=== PATIENT | female | born 1965 | race Caucasian/White ===

== ENCOUNTER → 2016-04-08 | Outpatient (CLI) | payer MEDICARE, OTHER, MEDICAID ==
[~2016-04-08] MED LIST: /PANT40TA; /PREG100CA PO; /PREG50CA PO; ABIL10TA OR; ADV100INH INH; ATIV0.5T; BACL10TA2; BACL10TA2 PO; BRIN20TA PO; BRIN5TAB PO; CITRTAB10 PO; EFFE150C OR; ESZO1TAB3 PO; FAMO20TA2 OR; FAMO40TA3 PO; FLUO10CA8 PO; IBUP600T; LAMICTAL; LEVO50TA2 OR; LIDO1DIS2 TD; LIDO5DIS36 TD; LITH300T2 OR; LORA1TAB12 PO; LORA2TAB PO; LOVE1INJ SUBQ; LUNE3TAB PO; LYRI150C PO; LYRI200C PO; MELA1CAP PO; MULTTAB4 PO; MURO5OIN OU; Morphine IR; NEXI20CA PO; NUCY50TA17 PO; OMEP40CA2 PO; OSCAL D PO; OXYC10TA12 PO; OXYC10TA56; OXYCODONE; PERCOCET PO; POTA20TA6 PO; PRAZ2CAP PO; PRISTIQ; PROA1AER IN; REME15TA PO; REST0.05 OU; RISP1SOL15 PO; RISP4TAB33 PO; SELE6PA TD; SERO1TAB2 PO; SOMA250T PO; SOMA350T PO; STOO100C PO; TIZA2CAP3 PO; TOPA200T6 PO; TOPI200T; TOPI200T OR; TRAM50TA2 OR; TRAZ300T2; VALI10TA PO; VICO5TAB PO; VILAZODONE PO; VITA200015 PO; VITA500T53 PO; VITAMIN B12 PO; VOLT1GEL2 TD; VOLT1GEL24 TD; ZIPR80CAP; ZOLO100T PO; [UNRECOGNIZED DRUG - OTHER] PO; [UNRECOGNIZED DRUG - OTHER] TD; estroven
== END ==
LOC: M PAIN 10:20
PROVIDERS: ATTEND Nurse Practitioner Family
DX: Z09 Encounter for follow-up examination after completed treatment for conditions other than malignant neoplasm (principal); G89.29 Other chronic pain; M96.1 Postlaminectomy syndrome, not elsewhere classified; F31.9 Bipolar disorder, unspecified; Z88.0 Allergy status to penicillin; Z88.8 Allergy status to other drugs, medicaments and biological substances; Z91.018 Allergy to other foods; Z79.891 Long term (current) use of opiate analgesic; Z79.899 Other long term (current) drug therapy; Z91.041 Radiographic dye allergy status; Z86.718 Personal history of other venous thrombosis and embolism

== ENCOUNTER → 2016-05-10 | Outpatient (CLI) | payer MEDICARE, MEDICAID, OTHER ==
--- NOTE | 2016-05-10 23:44 | ECWPNPC ---
PATIENT NAME: CECILIO CONNER : 1965 GENDER: FEMALE VISIT DATE: 05/10/2016 DISCHARGE DATE: 05/10/16 1027 VISIT LOCKED DATE TIME: PHYSICIAN: SRIDHAR PRADO RESOURCE: SRIDHAR PRADO REASON FOR APPOINTMENT 1. FOLLOWUP HISTORY OF PRESENT ILLNESS HISTORY OF PRESENT ILLNESS: PAIN THE PATIENT DESCRIBES THE PAIN... THE PATIENT DESCRIBES THE PAIN... THE PATIENT DESCRIBES THE PAIN... THE PATIENT DESCRIBES THE PAIN... THE PATIENT DESCRIBES THE PAIN... 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 FINDS CURRENT MEDICINE EFFECTIVE AT REDUCING PAIN AND KEEPING HER COMFORTABLE.DENIES ADVERSE EFFECTS W MEDICATION. CURRENT MEDICATION :LYRICA 200MG BID,MSIR 15MG 1 PRN FOR SEVERE PAIN W MAX 3 TAB,NUCYNTA 100MG BID.RATING PAIN VAS 7/10.RECENTLY HAS BEEN BOTHERED BY RIGHT NECK PAIN AND LEFT ARM PAIN.HAS HAD DCS REMOVED .HAD COMPLICATIONS OF INCREASED PAIN POST PROCEDURE AND ENDED UP IN HOSPITAL IN [place] X6DAYS.HAS BEEN OFF NUCYNTA ER AND MSIR 15MG SINCE February.REPORTING DISABLING PAIN SINCE LAST WEEK.PAIN IS LOCATED IN LOW BACK.PAIN IS AGGREVATED BY USE OF ARMS.REPORTING POOR SLEEP X5 DAYS AND BIT OFF NAILS.HAS HAD HIGH ANXIETY LATELY.USING MSIR 15MG PRN FOR SEVERE PAIN W MINIMAL IMPROVEMNT.FINDS CYCLOBENZAPRINE 10MG PRN W GOOD EFFECT. FALL RISK SCREENING: SCREENING :NO FALLS IN THE PAST YEAR CURRENT MEDICATIONS TAKING TOPAMAX 200 MG TABLET 1 TABLET ORALLY TWICE A DAY TAKING LEVOTHYROXINE SODIUM 50 MCG TABLET 1 TABLET ON AN EMPTY STOMACH IN THE MORNING P.O. ONCE A DAY TAKING LORAZAPAM 1 1MG TABLET 1 TAB(S) P.O. THREE TIMES A DAY NEEDED TAKING OMEPRAZOLE 40 MG CAPSULE DELAYED RELEASE 1 CAPSULE P.O. TWICE A DAY TAKING VITAMIN D-3 2000UNITS TABLET 2 TABLETS P.O. TWICE A DAY TAKING MULTIVITAMINS OTC TABLET 2 TABLETS P.O. ONCE A DAY TAKING CITRACAL + D 250-200 MG-UNIT TABLET 1 TABLET P.O. TWICE A DAY TAKING ADVAIR DISKUS 100-50 MCG/DOSE AEROSOL POWDER BREATH ACTIVATED 1 PUFF INHALATION TWICE A DAY TAKING PROAIR HFA AEROSOL SOLUTION 2 PUFFS NEEDED INHALATION TWICE A DAY TAKING RESTASIS 1 DROP OPHTHALMIC TWICE A DAY BOTH EYES TAKING SEROQUEL 300 MG TABLET 1 TABLET ORALLY DAILY TAKING VORTIOXETINE HBR 20 MG TABLET 1 TABLET ORALLY ONCE A DAY (TRINTELLIX) TAKING POTASSIUM 1 TAB ORAL ONCE DAILY TAKING FENOFIBRATE 134 MG CAPSULE 1 CAPSULE WITH A MEAL ORALLY ONCE A DAY TAKING ALBUTEROL SULFATE 1.25 MG/3ML NEBULIZATION SOLUTION 3 ML NEEDED INHALATION EVERY 8 HRS TAKING REMERON 15 MG TABLET 1 TABLET BEFORE BEDTIME IN THE EVENING ORALLY ONCE A DAY TAKING VENLAFAXINE HCL 37.5 MG TABLET 1 TABLET WITH FOOD ORALLY QD TAKING LYRICA 200 MG CAPSULE 1 CAPSULE ORALLY BID MDD2 TAKING MORPHINE SULFATE 15 MG TABLET 1 TABLET NEEDED ORALLY Q8H PRN MDD3 TAKING CYCLOBENZAPRINE HCL 10 MG TABLET 1 TABLET ORALLY THREE TIMES A DAY NEEDED TAKING LIDOCAINE HCL 2 % GEL DIRECTED EXTERNALLY BID TO INCISIONAL AREA NOT-TAKING ANTI-FUNGAL CREAM ONE APPLICATION EXTERNALLY THREE TIMES DAILY NOT-TAKING LOTEMAX 0.5 % SUSPENSION 1 DROP INTO AFFECTED EYE OPHTHALMIC FOUR TIMES A DAY NOT-TAKING REFRESH DRY EYE THERAPY 1 DROP BOTH EYES FOUR TIMES DAILY NOT-TAKING FISH OIL 1000 MG CAPSULE 1 CAPSULE ORALLY ONCE A DAY NOT-TAKING LIDODERM 5 % PATCH 1 PATCH TO INTACT SKIN REMOVE AFTER 12 HOURS EXTERNALLY ONCE A DAY NOT-TAKING BUDESONIDE (INHALATION) 1 INHALATION NEBULIZER TWICE DAILY MEDICATION LIST REVIEWED AND RECONCILED WITH THE PATIENT PAST MEDICAL HISTORY BIPOLAR DISORDER HX OF DVT, 1988 1998, BACK INJURY AFTER 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 NEW PATIENT PAIN DIARY TODAY'S VISITNOTES FROM 0-10, WHAT LEVEL IS YOUR PAIN TODAY?0 PAIN CLINIC PFS, CLERGY, PUBLIC HEALTH REFERRALS PFS REFERRAL NEEDED?NO CLERGY REFERRAL NEEDED?NO PUBLIC HEALTH REFERRAL NEEDED?NO WAS THE PROVIDER NOTIFIED OF ANY PERTINENT INFO?NO PFS REFERRAL NEEDED?NO CLERGY REFERRAL NEEDED?NO PUBLIC HEALTH REFERRAL NEEDED?NO WAS THE PROVIDER NOTIFIED OF ANY PERTINENT INFO?NO REVIEW OF SYSTEMS CONSTITUTIONAL: ANY CHANGE IN YOUR MEDICAL CONDITION? NO . CHILLS NO . FEVER NO . INFECTION: DO YOU HAVE NEW INFECTIONS? NO . DO YOU HAVE HISTORY OF MRSA? NO . MUSCULOSKELETAL: ANY NEW PATTERNS OF PAIN OR NUMBNESS? NO . GASTROENTEROLOGY: ANY NEW CHANGE IN BOWEL CONTROL? NO . GENITOURINARY: ANY NEW CHANGE IN BLADDER CONTROL? NO . IS THERE A CHANCE YOU COULD BE ? NO . HEMATOLOGY/LYMPH: DO YOU TAKE ANY BLOOD THINNERS? (FOR EXAMPLE- COUMADIN, PLAVIX, AGGRENOX, PLATEL, PRADAXA, OR XARELTO) NO . WHEN WAS YOUR LAST DOSE? DATE: TIME: . NEUROLOGY: HAVE YOU FALLEN IN THE PAST 6 MONTHS? NO . ANY NEW EXTREMITY NUMBNESS OR WEAKNESS? NO . CARDIOLOGY: DO YOU HAVE A PACEMAKER OR DEFIBRILLATOR? NO . RESPIRATORY: HAVE YOU BEEN SICK IN THE PAST WEEK? NO . FEVER NO . FLU LIKE SYMPTOMS? NO . COUGH NO . INTEGUMENTARY: DO YOU HAVE ANY RASHES OR OPEN SORES? NO . ALLERGIC/IMMUNO: ARE YOU ALLERGIC TO SHELLFISH OR IV DYE? NO . ANY NEW ALLERGIES? NO . PSYCHIATRIC: DO YOU HAVE THOUGHTS OF HURTING YOURSELF OR SOMEONE ELSE? NO . ARE YOU ABUSED, NEGLECTED, OR IN AN UNSAFE ENVIRONMENT? NO . ENDOCRINOLOGY: ARE YOU DIABETIC? NO . OTHER: DO YOU NEED ANY PRESCRIPTIONS? YES . IF YES, PLEASE LIST: MORPHINE AND CYCLOBENZAPRINE . ANY NEW PROBLEMS WITH YOUR MEDICATIONS? NO . WHEN DID YOU LAST EAT? ____ . WHEN DID YOU LAST DRINK? ____ . WHAT DID YOU LAST DRINK? ____ . NAME OF PERSON DRIVING YOU HOME? ____ . DO YOU HAVE ANY OTHER QUESTIONS OR CONCERNS NO . REVIEWED BY: PROVIDER: SRIDHAR FATIMA . VITAL SIGNS WT 214 LBS, HT 66 IN, BMI 34.54 INDEX, BP 124/65 MM HG, HR 72 /MIN, RR 16 /MIN, TEMP 96.6 F, OXYGEN SAT % 98, NA INITIALS TL 0941, REVIEWED BY: CS. EXAMINATION GENERAL EXAMINATION: LUNGS:LUNG SOUNDS ARE CLEAR. HEART:HEART RATE REGULAR. MUSCULOSKELETAL:*. MUSCULOSKELETAL:*MUSCLE STRENGTH TESTING 0/5 RIGHT.5/5 LEFT., PALPATION: POSITIVE FOR PAIN OVER L/S SPINE. POSITIVE FOR PAIN OVER L/S PARSPINALS. ASSESSMENTS POST LAMINECTOMY SYNDROME - M96.1 (PRIMARY) CHRONIC PRESCRIPTION OPIATE USE - Z79.891 TREATMENT POST LAMINECTOMY SYNDROME CONTINUE LYRICA CAPSULE, 200 MG, 1 CAPSULE, ORALLY, BID MDD2, 30 DAY(S), 60, REFILLS 5 REFILL MORPHINE SULFATE TABLET, 15 MG, 1 TABLET NEEDED, ORALLY, Q8H PRN MDD3, 30 DAY(S), 90, REFILLS 0 REFILL CYCLOBENZAPRINE HCL TABLET, 10 MG, 1 TABLET, ORALLY, THREE TIMES A DAY NEEDED, 30 DAY(S), 90, REFILLS 1 CONTINUE LIDOCAINE HCL GEL, 2 %, DIRECTED, EXTERNALLY, BID TO INCISIONAL AREA NOTES: ISTOP REGISTRY REVIEWED AND DEMNOSTRATES COMPLLIANCE. BRINGS IN MEDICATIONS WHICH IS APPROPRIATE FOR WHAT WAS DISPENSED. RECENT URINE TOXICOLOGY REVIEWED. NO UNAUTHORIZED MEDICATIONS. NO ILLICIT SUBSTANCES AND PRESCRIBED MEDICATIONS WERE PRESENT. , RISKS AND BENEFITS OF NARCOTIC/OPIOD MEDICATIONS WERE REVIEWED WITH PATIENT - THIS INCLUDES BUT IS NOT LIMITED TO RISK OF DEPENDANCE/DEVELOPMENT OF ADDICTION, MOOD DISTURBANCE AND DEPRESSION, OSTEOPOROSIS, HORMONAL AND LABIDAL CHANGES, RESPIRATORY DEPRESSION AND . PATIENT IS ADVISED NOT TO DRIVE WHILE ON THESE MEDICATIONS. PROCEDURE CODES FA211 ESTABILISHED PATIENT [facility] FACILITY CHARGE G8730 PAIN ASSESS POS TOOL F/U PLAN DOC G8427 DOC MEDS VERIFIED W/PT OR RE DISPOSITION & COMMUNICATION FOLLOW UP 2 MONTHS ELECTRONICALLY SIGNED BY KUSHAL DOMINGO ON 05/10/2016 AT 11:09 AM EDT DISCLAIMER : THIS IS A VISIT SUMMARY EXTRACTED FROM THE [employer] CHART. IT IS NOT A COPY OF THE [employer] PROGRESS NOTE. MTDD
== END ==
LOC: M PAIN 09:40
PROVIDERS: ATTEND Nurse Practitioner Family
DX: Z09 Encounter for follow-up examination after completed treatment for conditions other than malignant neoplasm (principal); G89.29 Other chronic pain; M96.1 Postlaminectomy syndrome, not elsewhere classified; F31.9 Bipolar disorder, unspecified; Z88.5 Allergy status to narcotic agent; Z91.018 Allergy to other foods; Z91.040 Latex allergy status; Z88.8 Allergy status to other drugs, medicaments and biological substances; Z79.51 Long term (current) use of inhaled steroids; Z79.891 Long term (current) use of opiate analgesic; Z79.899 Other long term (current) drug therapy

== ENCOUNTER → 2016-06-28 | Outpatient (CLI) | payer MEDICARE, MEDICAID, OTHER ==
--- NOTE | 2016-06-28 14:27 | REPMRS ---
Patient History The patient states she had a clinical breast exam in 07/14 Patient is postmenopausal. Family history of breast cancer in maternal aunt at age 50 or over and colorectal cancer in maternal uncle at age 50 or over. Digital Woman Screen Mammo: June 28, 2016 - Exam #: [id number] Bilateral CC and MLO view(s) were taken. Technologist: Susu Ellis, Technologist Prior study comparison: January 09, 2015, digital woman screen mammo performed at [facility]. August 30, 2013, digital woman screen mammo performed at [facility] to [facility]. FINDINGS: There are scattered fibroglandular densities. There has been no change in the appearance of the mammogram from the prior studies. There is a mild amount of residual fibroglandular tissue which is fairly symmetric. There is no interval development of dominant mass, architectural distortion, or clustered microcalcification suggestive of malignancy. ASSESSMENT: BI-RADS/ACR category 1 mammogram. Negative. Recommendation Routine screening mammogram in 1 year (for women over age 40). This mammogram was interpreted with the aid of an FDA-approved computer-aided dectection system. Electronically Signed By: Bj Orellana MD 06/28/16 0550
== END ==
LOC: M WHC 13:20
PROVIDERS: ATTEND Nurse Practitioner Women's Health
DX: Z12.31 Encounter for screening mammogram for malignant neoplasm of breast (principal); Z78.0 Asymptomatic menopausal state

== ENCOUNTER → 2016-06-28 | Outpatient (REF) | payer MEDICARE, MEDICAID, OTHER | LOC: M SFHCWAGY 13:37 | PROVIDERS: ATTEND Nurse Practitioner Women's Health | DX: Z12.4 Encounter for screening for malignant neoplasm of cervix (principal); N95.2 Postmenopausal atrophic vaginitis ==

== ENCOUNTER → 2016-07-30 | Outpatient (CLI) | payer MEDICARE, MEDICAID, OTHER ==
[~2016-07-30] MED LIST changes: +ALL10TAB27 PO; +ALPR2TAB5 PO; +BRIN1TAB3 PO; +BUDE0.5S6 INH; +CYCL10TA PO; +LEVO50TA5 PO; +MIRT15TA3 PO; +MORP-38 PO; +MULT1TAB10 PO; +QUET1TAB10 PO; +THERCAP7 PO; +TOPI200T4 PO; +TUMS500C PO; +VENL37TA PO; +VITA10002 PO; +XANA2TAB PO
== END ==
LOC: M PAIN 10:00
PROVIDERS: ATTEND Nurse Practitioner Family
DX: G89.29 Other chronic pain (principal); M96.1 Postlaminectomy syndrome, not elsewhere classified; M53.3 Sacrococcygeal disorders, not elsewhere classified; F31.9 Bipolar disorder, unspecified; E78.1 Pure hyperglyceridemia; Z86.718 Personal history of other venous thrombosis and embolism; Z79.899 Other long term (current) drug therapy; Z98.84 Bariatric surgery status; Z98.1 Arthrodesis status; Z79.891 Long term (current) use of opiate analgesic; Z90.710 Acquired absence of both cervix and uterus; Z88.0 Allergy status to penicillin; Z88.1 Allergy status to other antibiotic agents; Z91.040 Latex allergy status; Z91.048 Other nonmedicinal substance allergy status; Z91.018 Allergy to other foods

== ENCOUNTER → 2016-08-05 | Outpatient (CLI) | payer MEDICARE, MEDICAID, OTHER ==
[~2016-08-05] MED LIST changes: +BUPIVACAINE HCL 0.25% 30 ML VIAL As Ordered ONE; +ISOVUE-M 300 61% 15ML VIAL (Q9967) As Ordered ONE; +LIDOCAINE 1% SDV INJ 30 ML VIAL As Ordered ONE; +TRIAMCINOLONE ACETONIDE SUSP 40 MG/ML VIAL (J3301) As Ordered ONE; +diazePAM 5 MG TAB As Ordered ONE; +oxyCODONE 5MG TAB As Ordered ONE
--- NOTE | 2016-08-05 10:53 | REP ---
Partial SI joint series: Four views. History: SI joint injection for pain. 28 seconds of fluoroscopy time is reported. Findings: A sequence of four fluoroscopically obtained last image hold spot radiographs of the right SI joint document various needle positions and contrast injections associated with injection procedure. Signed by Mik Saleh MD 08/05/2016 12:38 P
--- NOTE | 2016-08-15 23:29 | ECWPNPC ---
PATIENT NAME: CECILIO CONNER : 1965 GENDER: FEMALE VISIT DATE: 08/05/2016 DISCHARGE DATE: 08/05/16 1058 VISIT LOCKED DATE TIME: PHYSICIAN: LORENZO CHIANG RESOURCE: LORENZO CHIANG REASON FOR APPOINTMENT 1. RIGHT SIJ HISTORY OF PRESENT ILLNESS HISTORY OF PRESENT ILLNESS: PAIN THE PATIENT DESCRIBES THE PAIN... FALL RISK SCREENING: SCREENING :NO FALLS IN THE PAST YEAR CURRENT MEDICATIONS TAKING TOPAMAX 200 MG TABLET 1 TABLET ORALLY TWICE A DAY, NOTES: 0700 TAKING LEVOTHYROXINE SODIUM 50 MCG TABLET 1 TABLET ON AN EMPTY STOMACH IN THE MORNING P.O. ONCE A DAY, NOTES: 07 TAKING LORAZAPAM 1 1MG TABLET 1 TAB(S) P.O. THREE TIMES A DAY NEEDED, NOTES: 08/04/16@1930 TAKING OMEPRAZOLE 40 MG CAPSULE DELAYED RELEASE 1 CAPSULE P.O. DAILY, NOTES: 07 TAKING VITAMIN D-3 2000UNITS TABLET 2 TABLETS P.O. TWICE A DAY, NOTES: 07 TAKING MULTIVITAMINS OTC TABLET 2 TABLETS P.O. ONCE A DAY, NOTES: 07 TAKING CITRACAL + D 250-200 MG-UNIT TABLET 1 TABLET P.O. TWICE A DAY, NOTES: 07 TAKING PROAIR HFA AEROSOL SOLUTION 2 PUFFS NEEDED INHALATION TWICE A DAY, NOTES: 07 TAKING RESTASIS 1 DROP OPHTHALMIC TWICE A DAY BOTH EYES, NOTES: 08/04/16@1930 TAKING SEROQUEL 300 MG TABLET 1 TABLET ORALLY DAILY, NOTES: 08/04/16@1929 TAKING VORTIOXETINE HBR 20 MG TABLET 1 TABLET ORALLY ONCE A DAY (TRINTELLIX), NOTES: 729 TAKING POTASSIUM 1 TAB ORAL ONCE DAILY, NOTES: 08/04/16@0600 TAKING VENLAFAXINE HCL 37.5 MG TABLET 1 TABLET WITH FOOD ORALLY QD, NOTES: 07 TAKING LIDOCAINE HCL 2 % GEL DIRECTED EXTERNALLY BID TO INCISIONAL AREA, NOTES: 08/04/16@0900 TAKING VENLAFAXINE HCL 37.5 MG TABLET 1 TABLET WITH FOOD ORALLY QD, NOTES: 08/04/16@00 TAKING CYCLOBENZAPRINE HCL 10 MG TABLET 1 TABLET ORALLY THREE TIMES A DAY NEEDED, NOTES: 729 TAKING SEROQUEL 400 MG TABLET 1 TABLET AT BEDTIME ORALLY ONCE A DAY, NOTES: 08/04/16@1930 TAKING THERATEARS NUTRITION - CAPSULE 3 CAPSULES IN THE MORNING ORALLY ONCE A DAY, NOTES: 08/04/16@0600 TAKING BUDESONIDE (INHALATION) 1 INHALATION NEBULIZER TWICE DAILY, NOTES: 08/04/16@2100 TAKING LYRICA 200 MG CAPSULE 1 CAPSULE ORALLY BID MDD2, NOTES: 0700 TAKING MORPHINE SULFATE 15 MG TABLET 1 TABLET NEEDED ORALLY Q8H PRN MDD3, NOTES: 3 DAYS AGO TAKING REFRESH 1 % SOLUTION 1 DROP INTO AFFECTED EYE NEEDED OPHTHALMIC 24 TIME(S) A DAY, NOTES: 0700 NOT-TAKING ADVAIR DISKUS 100-50 MCG/DOSE AEROSOL POWDER BREATH ACTIVATED 1 PUFF INHALATION TWICE A DAY NOT-TAKING ALBUTEROL SULFATE 1.25 MG/3ML NEBULIZATION SOLUTION 3 ML NEEDED INHALATION EVERY 8 HRS NOT-TAKING REMERON 15 MG TABLET 1 TABLET BEFORE BEDTIME IN THE EVENING ORALLY ONCE A DAY NOT-TAKING ANTI-FUNGAL CREAM ONE APPLICATION EXTERNALLY THREE TIMES DAILY NOT-TAKING LOTEMAX 0.5 % SUSPENSION 1 DROP INTO AFFECTED EYE OPHTHALMIC FOUR TIMES A DAY NOT-TAKING REFRESH DRY EYE THERAPY 1 DROP BOTH EYES FOUR TIMES DAILY NOT-TAKING FISH OIL 1000 MG CAPSULE 1 CAPSULE ORALLY ONCE A DAY NOT-TAKING LIDODERM 5 % PATCH 1 PATCH TO INTACT SKIN REMOVE AFTER 12 HOURS EXTERNALLY ONCE A DAY DISCONTINUED FENOFIBRATE 134 MG CAPSULE 1 CAPSULE WITH A MEAL ORALLY ONCE A DAY, NOTES: ON HOLD X 2 WEEKS,TO RESTART 07/02/16 MEDICATION LIST REVIEWED AND RECONCILED WITH THE PATIENT PAST MEDICAL HISTORY BIPOLAR DISORDER HX OF DVT, 1988 1998, BACK INJURY AFTER 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 NO . CHILLS NO . FEVER NO . INFECTION: DO YOU HAVE NEW INFECTIONS? NO . DO YOU HAVE HISTORY OF MRSA? NO . MUSCULOSKELETAL: ANY NEW PATTERNS OF PAIN OR NUMBNESS? NO . GASTROENTEROLOGY: ANY NEW CHANGE IN BOWEL CONTROL? NO . GENITOURINARY: ANY NEW CHANGE IN BLADDER CONTROL? NO . IS THERE A CHANCE YOU COULD BE ? NO . HEMATOLOGY/LYMPH: DO YOU TAKE ANY BLOOD THINNERS? (FOR EXAMPLE- COUMADIN, PLAVIX, AGGRENOX, PLATEL, PRADAXA, OR XARELTO) NO . WHEN WAS YOUR LAST DOSE? DATE: TIME: . NEUROLOGY: HAVE YOU FALLEN IN THE PAST 6 MONTHS? NO . ANY NEW EXTREMITY NUMBNESS OR WEAKNESS? NO . CARDIOLOGY: DO YOU HAVE A PACEMAKER OR DEFIBRILLATOR? NO . RESPIRATORY: HAVE YOU BEEN SICK IN THE PAST WEEK? NO . FEVER NO . FLU LIKE SYMPTOMS? NO . COUGH NO . INTEGUMENTARY: DO YOU HAVE ANY RASHES OR OPEN SORES? NO . ALLERGIC/IMMUNO: ARE YOU ALLERGIC TO SHELLFISH OR IV DYE? NO . ANY NEW ALLERGIES? NO . PSYCHIATRIC: DO YOU HAVE THOUGHTS OF HURTING YOURSELF OR SOMEONE ELSE? NO . ARE YOU ABUSED, NEGLECTED, OR IN AN UNSAFE ENVIRONMENT? NO . ENDOCRINOLOGY: ARE YOU DIABETIC? NO . OTHER: DO YOU NEED ANY PRESCRIPTIONS? NO . IF YES, PLEASE LIST: ____ . ANY NEW PROBLEMS WITH YOUR MEDICATIONS? NO . WHEN DID YOU LAST EAT? ____08/04/16 . WHEN DID YOU LAST DRINK? ____0700 . WHAT DID YOU LAST DRINK? ____WATER . NAME OF PERSON DRIVING YOU HOME? ____LUNDYS . DO YOU HAVE ANY OTHER QUESTIONS OR CONCERNS YESWHAT ABOUT MY NECK AND HEAD PAIN . REVIEWED BY: PROVIDER: . VITAL SIGNS WT 205 LBS, HT 66 IN, BMI 33.08 INDEX, BP 113/58 MM HG, HR 67 /MIN, RR 16 /MIN, TEMP 97.6 F, OXYGEN SAT % 96%, NA INITIALS SC 09:06, REVIEWED BY: VD. ASSESSMENTS SACROILIITIS, NOT ELSEWHERE CLASSIFIED - M46.1 (PRIMARY) PROCEDURES PN SI PRE PROCEDURE DIAGNOSIS SACROILIITIS, SACROILIAC JOINT DYSFUNCTION POST PROCEDURE DIAGNOSIS SACROILIITIS, SACROILIAC JOINT DYSFUNCTION PROCEDURE RIGHT SACROILIAC JOINT BLOCK SURGEON DR. LORENZO CHIANG TAXATION AGENT NONE ANESTHESIA LOCAL PRE PROCEDURE NOTE PATIENT WITH HISTORY OF CHRONIC LOW BACK PAIN. I EVALUATED THE PATIENT AND REVIEWED THE CHART. I WENT OVER THE RISKS, ALTERNATIVES, AND BENEFITS ASSOCIATED WITH THIS PROCEDURE. THE PATIENT WOULD LIKE TO PROCEED AND GAVE CONSENT TO PERFORM THE PROCEDURE. THE PATIENT DENIES UNEXPLAINABLE WEIGHT LOSS, FEVER, CHILLS, OR NEW CHANGES IN URINARY OR BOWEL CONTROL DESCRIPTION OF PROCEDURE THE PATIENT WAS BROUGHT TO THE PROCEDURE ROOM AND PLACED IN THE PRONE POSITION. THE LUMBOSACRAL AREA WAS CLEANED WITH CHLORAPREP SOLUTION AND DRAPED ASEPTICALLY. THE PROCEDURE WAS DONE UNDER STERILE CONDITIONS. I CHECKED LATERALITY AND THE LEVEL WHERE THE PROCEDURE WAS GOING TO BE PERFORMED WITH THE PATIENT AND THE SUPPORTING STAFF AT THE MOMENT OF THE TIME OUT IN THE PROCEDURE ROOM. UNDER FLUOROSCOPIC GUIDANCE, TARGET POINT WAS SELECTED AT THE LOWER BORDER OF THE RIGHT SACROILIAC JOINT. TARGET POINT WAS SELECTED AFTER MEDIAL ROTATION AND TILT OF THE MAGNIFIER OF THE C-ARM. LIDOCAINE WAS USED TO NUMB THE SKIN AND SUBCUTANEOUS TISSUE BELOW IT. A SPINAL NEEDLE, 22-GAUGE, WAS ADVANCED UNDER FLUOROSCOPIC GUIDANCE AND FOLLOWING PATIENT FEEDBACK UNTIL THE TARGET AREA WAS TOUCHED. THE POSITION OF THE NEEDLE WAS VERIFIED WITH AP AND LATERAL VIEWS. AFTER PROPER POSITION OF THE NEEDLE WAS ACHIEVED, ISOVUE M DYE 30%, 0.25 ML, WAS INJECTED SHOWING SPREAD OF THE DYE. THEN, A SOLUTION OF 20 MG OF KENALOG WAS INJECTED IN RIGHT JOINT WITH 3 ML OF BUPIVACAINE 0.125%. THERE WAS NO EVIDENCE OF BLOOD, PARESTHESIA OR CEREBROSPINAL FLUID DURING THE PROCEDURE. THE PATIENT WAS SENT TO THE RECOVERY ROOM. THE PATIENT WAS MOVING THE EXTREMITIES AND DOING WELL. THERE WAS NO COMPLICATION DURING THE PROCEDURE. FLUOROSCOPY TIME WAS 28 SECONDS POST PROCEDURE NOTE THE PATIENT WILL BE SEEN IN A FOLLOW UP IN THE NEXT FEW WEEKS. INSTRUCTIONS WERE GIVEN, QUESTIONS WERE ANSWERED, AND THE PATIENT EXPRESSED UNDERSTANDING AND AGREED WITH THE PLAN. I, OXANA JEAN, DOCUMENTED THE ABOVE INFORMATION ACTING A SCRIBE FOR DR. CHIANG. I HAVE REVIEWED THE ABOVE DOCUMENT, WRITTEN BY OXANA JEAN SCRIBLaura AND I VERIFY THAT IT IS [facility] FLUORO GUIDANCE (PAIN)[id number] PROCEDURE CODES 54391 INJECT SACROILIAC JOINT 6045F RADXPS IN END [id number] PXD DISPOSITION & COMMUNICATION FOLLOW UP 3 WEEKS ELECTRONICALLY SIGNED BY LORENZO CHIANG MD ON 08/15/2016 AT 03:47 PM EDT DISCLAIMER : THIS IS A VISIT SUMMARY EXTRACTED FROM THE [employer] CHART. IT IS NOT A COPY OF THE [employer] PROGRESS NOTE. MTDD
== END ==
LOC: M PAIN 09:00
PROVIDERS: ATTEND Anesthesiology
DX: G89.29 Other chronic pain (principal); M46.1 Sacroiliitis, not elsewhere classified; F31.9 Bipolar disorder, unspecified; Z86.718 Personal history of other venous thrombosis and embolism; Z88.0 Allergy status to penicillin; Z88.1 Allergy status to other antibiotic agents; Z91.040 Latex allergy status; Z91.048 Other nonmedicinal substance allergy status; Z88.8 Allergy status to other drugs, medicaments and biological substances; Z91.018 Allergy to other foods; Z79.51 Long term (current) use of inhaled steroids; Z79.899 Other long term (current) drug therapy
CPT/HCPCS: G0260; J3301; Q9967

== ENCOUNTER → 2016-08-19 | Outpatient (CLI) | payer MEDICARE, MEDICAID, OTHER ==
[~2016-08-19] MED LIST changes: -BUPIVACAINE HCL 0.25% 30 ML VIAL As Ordered ONE; -ISOVUE-M 300 61% 15ML VIAL (Q9967) As Ordered ONE; -LIDOCAINE 1% SDV INJ 30 ML VIAL As Ordered ONE; -TRIAMCINOLONE ACETONIDE SUSP 40 MG/ML VIAL (J3301) As Ordered ONE; -diazePAM 5 MG TAB As Ordered ONE; -oxyCODONE 5MG TAB As Ordered ONE
--- NOTE | 2016-08-20 00:20 | ECWPNPC ---
PATIENT NAME: CECILIO CONNER : 1965 GENDER: FEMALE VISIT DATE: 08/19/2016 DISCHARGE DATE: 08/19/16 1054 VISIT LOCKED DATE TIME: PHYSICIAN: SRIDHAR PRADO RESOURCE: SRIDHAR PRADO REASON FOR APPOINTMENT 1. POST PROCEDURE HISTORY OF PRESENT ILLNESS HISTORY OF PRESENT ILLNESS: HERE FOR POST PROCEDURE F/U.HAD RIGHT SIJ ON 08-05-16.REPORTS 24 HRS IMPROVEMENT THEN PAIN RETURNED TO BASELINE.RATING PAIN VAS 9/10.CURRENTLY USING MORPHINE 15MG PRN FOR SEVERE PAIN EPISODES.ALSO USING LYRICA 200MG BID AND CYCLOBENZAPRINE 10MG PRN.FINDS MEDICATION EFFECTIVE AT REDUCING PAIN AND KEEPING HER COMFORTABLE. PAIN THE PATIENT DESCRIBES THE PAIN... FALL RISK SCREENING: SCREENING :NO FALLS IN THE PAST YEAR CURRENT MEDICATIONS TAKING TOPAMAX 200 MG TABLET 1 TABLET ORALLY TWICE A DAY TAKING LEVOTHYROXINE SODIUM 50 MCG TABLET 1 TABLET ON AN EMPTY STOMACH IN THE MORNING P.O. ONCE A DAY TAKING OMEPRAZOLE 40 MG CAPSULE DELAYED RELEASE 1 CAPSULE P.O. DAILY TAKING VITAMIN D-3 2000UNITS TABLET 2 TABLETS P.O. TWICE A DAY TAKING MULTIVITAMINS OTC TABLET 2 TABLETS P.O. ONCE A DAY TAKING CITRACAL + D 250-200 MG-UNIT TABLET 1 TABLET P.O. TWICE A DAY TAKING PROAIR HFA AEROSOL SOLUTION 2 PUFFS NEEDED INHALATION TWICE A DAY TAKING RESTASIS 1 DROP OPHTHALMIC TWICE A DAY BOTH EYES TAKING SEROQUEL 300 MG TABLET 1 TABLET ORALLY DAILY TAKING VORTIOXETINE HBR 20 MG TABLET 1 TABLET ORALLY ONCE A DAY (TRINTELLIX) TAKING POTASSIUM 1 TAB ORAL ONCE DAILY TAKING VENLAFAXINE HCL 37.5 MG TABLET 1 TABLET WITH FOOD ORALLY QD TAKING LIDOCAINE HCL 2 % GEL DIRECTED EXTERNALLY BID TO INCISIONAL AREA TAKING VENLAFAXINE HCL 37.5 MG TABLET 1 TABLET WITH FOOD ORALLY QD TAKING CYCLOBENZAPRINE HCL 10 MG TABLET 1 TABLET ORALLY THREE TIMES A DAY NEEDED TAKING SEROQUEL 400 MG TABLET 1 TABLET AT BEDTIME ORALLY ONCE A DAY TAKING THERATEARS NUTRITION - CAPSULE 3 CAPSULES IN THE MORNING ORALLY ONCE A DAY TAKING BUDESONIDE (INHALATION) 1 INHALATION NEBULIZER TWICE DAILY TAKING LYRICA 200 MG CAPSULE 1 CAPSULE ORALLY BID MDD2 TAKING MORPHINE SULFATE 15 MG TABLET 1 TABLET NEEDED ORALLY Q8H PRN MDD3 TAKING REFRESH 1 % SOLUTION 1 DROP INTO AFFECTED EYE NEEDED OPHTHALMIC 24 TIME(S) A DAY TAKING ALPRAZOLAM ER 2 MG TABLET EXTENDED RELEASE 24 HOUR 1 TABLET IN THE MORNING ORALLY ONCE A DAY NOT-TAKING LORAZAPAM 1 1MG TABLET 1 TAB(S) P.O. THREE TIMES A DAY NEEDED NOT-TAKING ADVAIR DISKUS 100-50 MCG/DOSE AEROSOL POWDER BREATH ACTIVATED 1 PUFF INHALATION TWICE A DAY NOT-TAKING ALBUTEROL SULFATE 1.25 MG/3ML NEBULIZATION SOLUTION 3 ML NEEDED INHALATION EVERY 8 HRS NOT-TAKING REMERON 15 MG TABLET 1 TABLET BEFORE BEDTIME IN THE EVENING ORALLY ONCE A DAY NOT-TAKING ANTI-FUNGAL CREAM ONE APPLICATION EXTERNALLY THREE TIMES DAILY NOT-TAKING LOTEMAX 0.5 % SUSPENSION 1 DROP INTO AFFECTED EYE OPHTHALMIC FOUR TIMES A DAY NOT-TAKING REFRESH DRY EYE THERAPY 1 DROP BOTH EYES FOUR TIMES DAILY NOT-TAKING FISH OIL 1000 MG CAPSULE 1 CAPSULE ORALLY ONCE A DAY NOT-TAKING LIDODERM 5 % PATCH 1 PATCH TO INTACT SKIN REMOVE AFTER 12 HOURS EXTERNALLY ONCE A DAY MEDICATION LIST REVIEWED AND RECONCILED WITH THE PATIENT PAST MEDICAL HISTORY BIPOLAR DISORDER HX OF DVT, 1988 1998, BACK INJURY AFTER BENDING OVER TO [employer] TOY R LOWER EXTREMITY PARALYSIS 09/04/2014 AFTER BACK SURGERY ELEVATED LIVER ENZYMES ELEVATED TRIGLYCERIDES ASTHMA ALLERGIES PENICILLIN (FOR ALLERGIES USE ONLY): HIVES: ALLERGY VANCOMYCIN HCL: RED CASE SYDROME: ALLERGY KIWI: HIVES: ALLERGY LATEX (FOR ALLERGY USE ONLY): HIVES: ALLERGY RELAFEN: NAUSEA/VOMITING: ALLERGY TAPE SURGICAL HISTORY SPINAL COLUMN STIMULATOR IMPLANT 04/1999 DISKECTOMY INFUSION 04/2003 HYSTERECTOMY, TOTAL WITH BSO 2004 LEEP COLPOSCOPY GASTRIC BYPASS 11/2012 BACK SURGERY LOWER 09/04/14 SPINAL COLUMN STIMULATOR IMPLANT REMOVED 02/26/16 LEFT SUBCLAVIAN INFUSAPORT HOSPITALIZATION/MAJOR DIAGNOSTIC PROCEDURE DEHYDRATRION, LOW POTASSIUM, FRACTURED LEFT ANKLE AND TORN TENDON 04/2013 INPATIENT BH AT [facility] AFTER COMPLICATION FROM BACK SURGERY 2014 REVIEW OF SYSTEMS REVIEWED BY: PROVIDER: SRIDHAR FATIMA . CONSTITUTIONAL: ANY CHANGE IN YOUR MEDICAL CONDITION? YES, URI AND ASTHMA EXACERBATION . CHILLS NO . FEVER NO . INFECTION: DO YOU HAVE NEW INFECTIONS? YES, URI . DO YOU HAVE HISTORY OF MRSA? NO . MUSCULOSKELETAL: ANY NEW PATTERNS OF PAIN OR NUMBNESS? YES, FLANK BACK PAIN PT RATES PAIN 11/07 . GASTROENTEROLOGY: ANY NEW CHANGE IN BOWEL CONTROL? NO . GENITOURINARY: ANY NEW CHANGE IN BLADDER CONTROL? NO . IS THERE A CHANCE YOU COULD BE ? NO . HEMATOLOGY/LYMPH: DO YOU TAKE ANY BLOOD THINNERS? (FOR EXAMPLE- COUMADIN, PLAVIX, AGGRENOX, PLATEL, PRADAXA, OR XARELTO) NO . WHEN WAS YOUR LAST DOSE? DATE: TIME: . NEUROLOGY: HAVE YOU FALLEN IN THE PAST 6 MONTHS? NO . ANY NEW EXTREMITY NUMBNESS OR WEAKNESS? NO . CARDIOLOGY: DO YOU HAVE A PACEMAKER OR DEFIBRILLATOR? NO . RESPIRATORY: HAVE YOU BEEN SICK IN THE PAST WEEK? YES, PT STATES HER ASTHMA HAS BEEN ACTING UP, HOME CARE NURSE SCHEDULED AN APPT WITH PCP BUT PT WENT ON WRONG DAY AND [place] [facility] [place] FOR URI AND ASTHMA WITH ABX-NAME? AND STERIODS X 5 DAYS. PT STATES SHE WILL BE RECEIVING THESE RX'S TODAY.&NBSP;. FEVER &NBSP;&NBSP; NO&NBSP;. FLU LIKE SYMPTOMS? &NBSP;&NBSP; NO&NBSP;. COUGH &NBSP;&NBSP; NO&NBSP;. INTEGUMENTARY: DO YOU HAVE ANY RASHES OR OPEN SORES? NO . ALLERGIC/IMMUNO: ARE YOU ALLERGIC TO SHELLFISH OR IV DYE? NO . ANY NEW ALLERGIES? NO . PSYCHIATRIC: DO YOU HAVE THOUGHTS OF HURTING YOURSELF OR SOMEONE ELSE? NO . ARE YOU ABUSED, NEGLECTED, OR IN AN UNSAFE ENVIRONMENT? NO . ENDOCRINOLOGY: ARE YOU DIABETIC? NO . OTHER: DO YOU NEED ANY PRESCRIPTIONS? NO . IF YES, PLEASE LIST: ____ . ANY NEW PROBLEMS WITH YOUR MEDICATIONS? NO . WHEN DID YOU LAST EAT? ____ . WHEN DID YOU LAST DRINK? ____ . WHAT DID YOU LAST DRINK? ____ . NAME OF PERSON DRIVING YOU HOME? ____ . DO YOU HAVE ANY OTHER QUESTIONS OR CONCERNS NO . VITAL SIGNS WT 205 LBS, HT 66 IN, BMI 33.08 INDEX, BP 110/85 MM HG, HR 91 /MIN, RR 16 /MIN, TEMP 96.4 F, OXYGEN SAT % 96%, SAFE IN ENV? (Y/N) Y, NA INITIALS SC 10:24, REVIEWED BY: EM. EXAMINATION GENERAL EXAMINATION: LUNGS:LUNG SOUNDS ARE CLEAR. HEART:HEART RATE REGULAR. MUSCULOSKELETAL:*MUSCLE STRENGTH TESTING 0/5 RIGHT.5/5 LEFT., PALPATION: POSITIVE FOR PAIN OVER L/S SPINE. POSITIVE FOR PAIN OVER L/S PARASPINALS. SPECIFIC POINT TENDERNESS OVER RIGHT SIJ. ASSESSMENTS POST LAMINECTOMY SYNDROME - M96.1 (PRIMARY) CHRONIC PRESCRIPTION OPIATE USE - Z79.891 SACROILIAC JOINT PAIN - M53.3 TREATMENT POST LAMINECTOMY SYNDROME REFILL MORPHINE SULFATE TABLET, 15 MG, 1 TABLET NEEDED, ORALLY, Q8H PRN MDD3, 30 DAY(S), 90, REFILLS 0 REFILL LYRICA CAPSULE, 200 MG, 1 CAPSULE, ORALLY, BID MDD2, 30 DAY(S), 60, REFILLS 2 NOTES: ISTOP REGISTRY REVIEWED AND DEMNOSTRATES COMPLLIANCE. BRINGS IN MEDICATIONS WHICH IS APPROPRIATE FOR WHAT WAS DISPENSED. RECENT URINE TOXICOLOGY REVIEWED. NO UNAUTHORIZED MEDICATIONS. NO ILLICIT SUBSTANCES AND PRESCRIBED MEDICATIONS WERE PRESENT. , RISKS AND BENEFITS OF NARCOTIC/OPIOD MEDICATIONS WERE REVIEWED WITH PATIENT - THIS INCLUDES BUT IS NOT LIMITED TO RISK OF DEPENDANCE/DEVELOPMENT OF ADDICTION, MOOD DISTURBANCE AND DEPRESSION, OSTEOPOROSIS, HORMONAL AND LABIDAL CHANGES, RESPIRATORY DEPRESSION AND . PATIENT IS ADVISED NOT TO DRIVE WHILE ON THESE MEDICATIONS. PROCEDURE CODES FA211 ESTABILISHED PATIENT [facility] CHARGE G8730 PAIN ASSESS POS TOOL F/U PLAN DOC G8427 DOC MEDS VERIFIED W/PT OR RE DISPOSITION & COMMUNICATION FOLLOW UP 4 WEEKS ELECTRONICALLY SIGNED BY KUSHAL DOMINGO ON 08/19/2016 AT 05:22 PM EDT DISCLAIMER : THIS IS A VISIT SUMMARY EXTRACTED FROM THE [employer] CHART. IT IS NOT A COPY OF THE [employer] PROGRESS NOTE. MTDD
== END ==
LOC: M PAIN 10:00
PROVIDERS: ATTEND Nurse Practitioner Family
DX: G89.29 Other chronic pain (principal); M96.1 Postlaminectomy syndrome, not elsewhere classified; Z79.891 Long term (current) use of opiate analgesic; M53.3 Sacrococcygeal disorders, not elsewhere classified; F31.9 Bipolar disorder, unspecified; J45.909 Unspecified asthma, uncomplicated; Z86.718 Personal history of other venous thrombosis and embolism; Z88.0 Allergy status to penicillin; Z88.1 Allergy status to other antibiotic agents; Z91.040 Latex allergy status; Z88.8 Allergy status to other drugs, medicaments and biological substances; Z91.018 Allergy to other foods; Z79.899 Other long term (current) drug therapy; Z79.51 Long term (current) use of inhaled steroids

== ENCOUNTER → 2016-10-13 | Outpatient (CLI) | payer MEDICARE, MEDICAID, OTHER ==
[~2016-10-13] MED LIST changes: -LIDO5DIS36 TD; +LIDO5DIS41 TD; +NUCY50TA14 PO; -NUCY50TA17 PO; -PROA1AER IN; +PROAAER10 IN; -TOPA200T6 PO; +TOPA200T7 PO; -TOPI200T4 PO; +TOPI200T7 PO; +VOLT1GEL15 TD; -VOLT1GEL24 TD
--- NOTE | 2016-11-10 01:28 | ECWPNPC ---
PATIENT NAME: CECILIO CONNER : 1965 GENDER: FEMALE VISIT DATE: 10/13/2016 DISCHARGE DATE: 10/13/16 1524 VISIT LOCKED DATE TIME: PHYSICIAN: SRIDHAR PRADO RESOURCE: SRIDHAR PRADO REASON FOR APPOINTMENT 1. BACK HISTORY OF PRESENT ILLNESS HISTORY OF PRESENT ILLNESS: HERE FOR F/U AND MEDICINE MANAGEMENT OF CHRONIC LOW BACK PAIN AND RIGHT LEG PAIN AND PARATHESIA.HAS BEEN HAVING A MAJOR INCREASE IN LOW BACK PAIN OVER THE PAST WEEK.STATES SHE STARTED PT 2X WEEK PRESCRIBED BY DR. REYEZ.PAIN IS AGGREVATED BY MOVEMENT AND WEIGHT BEARING.RATING PAIN VAS 8/10.CURRENTLY USING MORPHINE 15MG PRN FOR SEVERE PAIN EPISODES.ALSO USING LYRICA 200MG BID AND CYCLOBENZAPRINE 10MG PRN.FINDS MEDICATION EFFECTIVE AT REDUCING PAIN AND KEEPING HER COMFORTABLE. PAIN THE PATIENT DESCRIBES THE PAIN... THE PATIENT DESCRIBES THE PAIN... FALL RISK SCREENING: SCREENING :NO FALLS IN THE PAST YEAR CURRENT MEDICATIONS TAKING TOPAMAX 200 MG TABLET 1 TABLET ORALLY TWICE A DAY TAKING LEVOTHYROXINE SODIUM 50 MCG TABLET 1 TABLET ON AN EMPTY STOMACH IN THE MORNING P.O. ONCE A DAY TAKING OMEPRAZOLE 40 MG CAPSULE DELAYED RELEASE 1 CAPSULE P.O. DAILY TAKING VITAMIN D-3 2000UNITS TABLET 2 TABLETS P.O. TWICE A DAY TAKING MULTIVITAMINS OTC TABLET 1 TSP P.O. ONCE A DAY TAKING CITRACAL + D 250-200 MG-UNIT TABLET 1 TABLET P.O. TWICE A DAY TAKING PROAIR HFA AEROSOL SOLUTION 2 PUFFS NEEDED INHALATION TWICE A DAY TAKING RESTASIS 1 DROP OPHTHALMIC TWICE A DAY BOTH EYES TAKING SEROQUEL 300 MG TABLET 1 TABLET ORALLY DAILY, NOTES: 700MG TOTAL AT HS TAKING VORTIOXETINE HBR 20 MG TABLET 1 TABLET ORALLY ONCE A DAY (TRINTELLIX) TAKING POTASSIUM 1 TAB ORAL ONCE DAILY TAKING LIDOCAINE HCL 2 % GEL DIRECTED EXTERNALLY BID TO INCISIONAL AREA TAKING VENLAFAXINE HCL 37.5 MG TABLET 1 TABLET WITH FOOD ORALLY QD TAKING CYCLOBENZAPRINE HCL 10 MG TABLET 1 TABLET ORALLY THREE TIMES A DAY NEEDED TAKING SEROQUEL 400 MG TABLET 1 TABLET AT BEDTIME ORALLY ONCE A DAY, NOTES: 700 MG TOTAL AT HS TAKING THERATEARS NUTRITION - CAPSULE 3 CAPSULES IN THE MORNING ORALLY ONCE A DAY TAKING BUDESONIDE (INHALATION) 1 INHALATION NEBULIZER TWICE DAILY TAKING REFRESH 1 % SOLUTION 1 DROP INTO AFFECTED EYE NEEDED OPHTHALMIC 24 TIME(S) A DAY TAKING ALPRAZOLAM ER 2 MG TABLET EXTENDED RELEASE 24 HOUR 1 TABLET IN THE MORNING ORALLY ONCE A DAY TAKING MORPHINE SULFATE 15 MG TABLET 1 TABLET NEEDED ORALLY Q8H PRN MDD3 TAKING LYRICA 200 MG CAPSULE 1 CAPSULE ORALLY BID MDD2 TAKING MECLIZINE HCL 12.5 MG TABLET 1 TAB ORALLY FOUR TIMES DAILY NEEDED TAKING CETIRIZINE HCL 10 MG TABLET 1 TABLET ORALLY ONCE A DAY TAKING SINGULAIR 10 MG TABLET 1 TABLET IN THE EVENING ORALLY ONCE A DAY NOT-TAKING VENLAFAXINE HCL 37.5 MG TABLET 1 TABLET WITH FOOD ORALLY QD NOT-TAKING LORAZAPAM 1 1MG TABLET 1 TAB(S) P.O. THREE TIMES A DAY NEEDED NOT-TAKING ADVAIR DISKUS 100-50 MCG/DOSE AEROSOL POWDER BREATH ACTIVATED 1 PUFF INHALATION TWICE A DAY NOT-TAKING ALBUTEROL SULFATE 1.25 MG/3ML NEBULIZATION SOLUTION 3 ML NEEDED INHALATION EVERY 8 HRS NOT-TAKING REMERON 15 MG TABLET 1 TABLET BEFORE BEDTIME IN THE EVENING ORALLY ONCE A DAY NOT-TAKING ANTI-FUNGAL CREAM ONE APPLICATION EXTERNALLY THREE TIMES DAILY NOT-TAKING LOTEMAX 0.5 % SUSPENSION 1 DROP INTO AFFECTED EYE OPHTHALMIC FOUR TIMES A DAY NOT-TAKING REFRESH DRY EYE THERAPY 1 DROP BOTH EYES FOUR TIMES DAILY NOT-TAKING FISH OIL 1000 MG CAPSULE 1 CAPSULE ORALLY ONCE A DAY NOT-TAKING LIDODERM 5 % PATCH 1 PATCH TO INTACT SKIN REMOVE AFTER 12 HOURS EXTERNALLY ONCE A DAY MEDICATION LIST REVIEWED AND RECONCILED WITH THE PATIENT PAST MEDICAL HISTORY BIPOLAR DISORDER HX OF DVT, 1988 1998, BACK INJURY AFTER BENDING OVER TO [employer]NA[employer] TOY R LOWER EXTREMITY PARALYSIS 09/04/2014 AFTER BACK SURGERY ELEVATED LIVER ENZYMES ELEVATED TRIGLYCERIDES ASTHMA ALLERGIES PENICILLIN (FOR ALLERGIES USE ONLY): HIVES: ALLERGY VANCOMYCIN HCL: RED CASE SYDROME: ALLERGY KIWI: HIVES: ALLERGY LATEX (FOR ALLERGY USE ONLY): HIVES: ALLERGY RELAFEN: NAUSEA/VOMITING: ALLERGY TAPE REVIEW OF SYSTEMS REVIEWED BY: PROVIDER: SRIDHAR FATIMA . CONSTITUTIONAL: ANY CHANGE IN YOUR MEDICAL CONDITION? YES, VERTIGO FOR 1 WEEK, WENT TO MD / MECLIZINE GIVEN . CHILLS NO . FEVER NO . INFECTION: DO YOU HAVE NEW INFECTIONS? NO . DO YOU HAVE HISTORY OF MRSA? NO . MUSCULOSKELETAL: ANY NEW PATTERNS OF PAIN OR NUMBNESS? NO . GASTROENTEROLOGY: ANY NEW CHANGE IN BOWEL CONTROL? NO . GENITOURINARY: ANY NEW CHANGE IN BLADDER CONTROL? NO . IS THERE A CHANCE YOU COULD BE ? NO . HEMATOLOGY/LYMPH: DO YOU TAKE ANY BLOOD THINNERS? (FOR EXAMPLE- COUMADIN, PLAVIX, AGGRENOX, PLATEL, PRADAXA, OR XARELTO) NO . WHEN WAS YOUR LAST DOSE? DATE: TIME: . NEUROLOGY: HAVE YOU FALLEN IN THE PAST 6 MONTHS? NO . ANY NEW EXTREMITY NUMBNESS OR WEAKNESS? NO . CARDIOLOGY: DO YOU HAVE A PACEMAKER OR DEFIBRILLATOR? NO . RESPIRATORY: HAVE YOU BEEN SICK IN THE PAST WEEK? NO . FEVER NO . FLU LIKE SYMPTOMS? NO . COUGH NO . INTEGUMENTARY: DO YOU HAVE ANY RASHES OR OPEN SORES? NO . ALLERGIC/IMMUNO: ARE YOU ALLERGIC TO SHELLFISH OR IV DYE? NO . ANY NEW ALLERGIES? NO . PSYCHIATRIC: DO YOU HAVE THOUGHTS OF HURTING YOURSELF OR SOMEONE ELSE? NO . ARE YOU ABUSED, NEGLECTED, OR IN AN UNSAFE ENVIRONMENT? NO . ENDOCRINOLOGY: ARE YOU DIABETIC? NO . OTHER: DO YOU NEED ANY PRESCRIPTIONS? YES . IF YES, PLEASE LIST: MORPHINE , CYCLOBENZAPRINE . ANY NEW PROBLEMS WITH YOUR MEDICATIONS? NO . WHEN DID YOU LAST EAT? ____ . WHEN DID YOU LAST DRINK? ____ . WHAT DID YOU LAST DRINK? ____ . NAME OF PERSON DRIVING YOU HOME? ____ . DO YOU HAVE ANY OTHER QUESTIONS OR CONCERNS NO . VITAL SIGNS WT 235 LBS, HT 66 IN, BMI 37.93 INDEX, BP 102/62 MM HG, HR 75 /MIN, RR 16 /MIN, TEMP 97.8 F, OXYGEN SAT % 93%, NA INITIALS AW 1430, REVIEWED BY: NL. EXAMINATION GENERAL EXAMINATION: GENERAL APPEARANCE:UNCOMFORTABLE. PSYCHAFFECT FLAT, GOOD EYE CONTACT. NECK:TRACHEA MIDLINE. NO CERVICAL OR SUPRACLAVICULAR LYMPHADENOPATHY NOTED. LUNGS:LUNG ROSE ARE CLEAR TO AUSCULTATION BILATERALLY. GOOD MOVEMENT OF AIR. HEART:S1, S2 IN A REGULAR RATE AND RHYTHM. NO SIGNIFICANT MURMURS, RUBS OR GALLOPS NOTED. BACK:PERILUMBAR TENDERNESS, BILATERAL SI JOINT TENDERNESS.RIGHT LEG MUSCLE STRENGTH 1/5.LEFT LEG 3/5.PATIENT IS WHEELCHAIR DEPENDENT. ASSESSMENTS POST LAMINECTOMY SYNDROME - M96.1 (PRIMARY) CHRONIC PRESCRIPTION OPIATE USE - Z79.891 SACROILIAC JOINT PAIN - M53.3 TREATMENT POST LAMINECTOMY SYNDROME INCREASE CYCLOBENZAPRINE HCL TABLET, 10 MG, 1 TABLET, ORALLY, THREE TIMES A DAY NEEDED, 30 DAY(S), 90, REFILLS 1 REFILL MORPHINE SULFATE TABLET, 15 MG, 1 TABLET NEEDED, ORALLY, Q8H PRN MDD3, 30 DAY(S), 90, REFILLS 0 INCREASE LYRICA CAPSULE, 200 MG, 1 CAPSULE, ORALLY, TID MDD3, 30 DAY(S), 90, REFILLS 2 SMC MRI LS SPINE W/O AND WITH [id number] NOTES: ISTOP REGISTRY REVIEWED AND DEMNOSTRATES COMPLLIANCE. BRINGS IN MEDICATIONS WHICH IS APPROPRIATE FOR WHAT WAS DISPENSED. RECENT URINE TOXICOLOGY REVIEWED. NO UNAUTHORIZED MEDICATIONS. NO ILLICIT SUBSTANCES AND PRESCRIBED MEDICATIONS WERE PRESENT. , RISKS AND BENEFITS OF NARCOTIC/OPIOD MEDICATIONS WERE REVIEWED WITH PATIENT - THIS INCLUDES BUT IS NOT LIMITED TO RISK OF DEPENDANCE/DEVELOPMENT OF ADDICTION, MOOD DISTURBANCE AND DEPRESSION, OSTEOPOROSIS, HORMONAL AND LABIDAL CHANGES, RESPIRATORY DEPRESSION AND . PATIENT IS ADVISED NOT TO DRIVE WHILE ON THESE MEDICATIONS.URINE TOX TODAY. PROCEDURE CODES FA211 ESTABILISHED PATIENT [facility] CHARGE G8730 PAIN ASSESS POS TOOL F/U PLAN DOC G8427 DOC MEDS VERIFIED W/PT OR RE DISPOSITION & COMMUNICATION FOLLOW UP 4 WEEKS ELECTRONICALLY SIGNED BY KUSHAL DOMINGO ON 11/09/2016 AT 09:27 AM EDT DISCLAIMER : THIS IS A VISIT SUMMARY EXTRACTED FROM THE [employer] CHART. IT IS NOT A COPY OF THE [employer] PROGRESS NOTE. MTDD
== END ==
LOC: M PAIN 14:45
PROVIDERS: ATTEND Nurse Practitioner Family
DX: G89.29 Other chronic pain (principal); M96.1 Postlaminectomy syndrome, not elsewhere classified; Z79.891 Long term (current) use of opiate analgesic; M53.3 Sacrococcygeal disorders, not elsewhere classified; M54.5 Low back pain; M79.661 Pain in right lower leg; Z79.899 Other long term (current) drug therapy; F31.9 Bipolar disorder, unspecified; Z86.718 Personal history of other venous thrombosis and embolism; J45.909 Unspecified asthma, uncomplicated; Z88.0 Allergy status to penicillin; Z88.1 Allergy status to other antibiotic agents; Z91.018 Allergy to other foods; Z91.040 Latex allergy status; Z88.8 Allergy status to other drugs, medicaments and biological substances; Z91.048 Other nonmedicinal substance allergy status

== ENCOUNTER → 2016-11-10 | Outpatient (CLI) | payer MEDICARE, MEDICAID, OTHER ==
--- NOTE | 2016-11-18 01:16 | ECWPNPC ---
PATIENT NAME: CECILIO CONNER : 1965 GENDER: FEMALE VISIT DATE: 11/10/2016 DISCHARGE DATE: 11/10/16 1159 VISIT LOCKED DATE TIME: PHYSICIAN: SRIDHAR PRADO RESOURCE: SRIDHAR PRADO REASON FOR APPOINTMENT 1. BACK HISTORY OF PRESENT ILLNESS HISTORY OF PRESENT ILLNESS: HERE FOR F/U OF CHRONIC LOW BACK PAIN. HERE FOR F/U AND MEDICINE MANAGEMENT OF CHRONIC LOW BACK PAIN AND RIGHT LEG PAIN AND PARATHESIA.ATTENDING PT 2X WEEK PRESCRIBED BY DR. REYEZ.PAIN IS AGGREVATED BY MOVEMENT AND WEIGHT BEARING.STATES SHE BEGAN TO WALK AGAIN.STATES SHE HAD A MENTAL TALK WITH HER DICEASED MOTHER ENCOURAGING HER TO WALK.RATING PAIN VAS 8/10.CURRENTLY USING MORPHINE 15MG PRN FOR SEVERE PAIN EPISODES.ALSO USING LYRICA 200MG BID AND CYCLOBENZAPRINE 10MG PRN.FINDS MEDICATION EFFECTIVE AT REDUCING PAIN AND KEEPING HER COMFORTABLE. PAIN THE PATIENT DESCRIBES THE PAIN... THE PATIENT DESCRIBES THE PAIN... THE PATIENT DESCRIBES THE PAIN... FALL RISK SCREENING: SCREENING :NO FALLS IN THE PAST YEAR CURRENT MEDICATIONS TAKING TOPAMAX 200 MG TABLET 1 TABLET ORALLY TWICE A DAY TAKING LEVOTHYROXINE SODIUM 50 MCG TABLET 1 TABLET ON AN EMPTY STOMACH IN THE MORNING P.O. ONCE A DAY TAKING OMEPRAZOLE 40 MG CAPSULE DELAYED RELEASE 1 CAPSULE P.O. DAILY TAKING VITAMIN D-3 2000UNITS TABLET 2 TABLETS P.O. TWICE A DAY TAKING MULTIVITAMINS OTC TABLET 1 TSP P.O. ONCE A DAY TAKING CITRACAL + D 250-200 MG-UNIT TABLET 1 TABLET P.O. TWICE A DAY TAKING PROAIR HFA AEROSOL SOLUTION 2 PUFFS NEEDED INHALATION TWICE A DAY TAKING RESTASIS 1 DROP OPHTHALMIC TWICE A DAY BOTH EYES TAKING VORTIOXETINE HBR 20 MG TABLET 1 TABLET ORALLY ONCE A DAY (TRINTELLIX) TAKING POTASSIUM 1 TAB ORAL ONCE DAILY TAKING LIDOCAINE HCL 2 % GEL DIRECTED EXTERNALLY BID TO INCISIONAL AREA TAKING VENLAFAXINE HCL 37.5 MG TABLET 1 TABLET WITH FOOD ORALLY QD TAKING THERATEARS NUTRITION - CAPSULE 3 CAPSULES IN THE MORNING ORALLY ONCE A DAY TAKING BUDESONIDE (INHALATION) 1 INHALATION NEBULIZER TWICE DAILY TAKING REFRESH 1 % SOLUTION 1 DROP INTO AFFECTED EYE NEEDED OPHTHALMIC 24 TIME(S) A DAY TAKING ALPRAZOLAM ER 2 MG TABLET EXTENDED RELEASE 24 HOUR 1 TABLET IN THE MORNING ORALLY ONCE A DAY TAKING MECLIZINE HCL 12.5 MG TABLET 1 TAB ORALLY FOUR TIMES DAILY NEEDED TAKING CETIRIZINE HCL 10 MG TABLET 1 TABLET ORALLY ONCE A DAY TAKING SINGULAIR 10 MG TABLET 1 TABLET IN THE EVENING ORALLY ONCE A DAY TAKING CYCLOBENZAPRINE HCL 10 MG TABLET 1 TABLET ORALLY THREE TIMES A DAY NEEDED TAKING MORPHINE SULFATE 15 MG TABLET 1 TABLET NEEDED ORALLY Q8H PRN MDD3 TAKING LYRICA 200 MG CAPSULE 1 CAPSULE ORALLY TID MDD3 TAKING VRAYLAR 3 MG CAPSULE 1 CAPSULE ORALLY ONCE A DAY TAKING ALBUTEROL-IPRATROPIUM 2.5-0.5 MG/3ML SOLUTION 3 ML INHALATION EVERY 6 HRS NOT-TAKING SEROQUEL 300 MG TABLET 1 TABLET ORALLY DAILY, NOTES: 700MG TOTAL AT HS NOT-TAKING SEROQUEL 400 MG TABLET 1 TABLET AT BEDTIME ORALLY ONCE A DAY, NOTES: 700 MG TOTAL AT HS NOT-TAKING VENLAFAXINE HCL 37.5 MG TABLET 1 TABLET WITH FOOD ORALLY QD NOT-TAKING LORAZAPAM 1 1MG TABLET 1 TAB(S) P.O. THREE TIMES A DAY NEEDED NOT-TAKING ADVAIR DISKUS 100-50 MCG/DOSE AEROSOL POWDER BREATH ACTIVATED 1 PUFF INHALATION TWICE A DAY NOT-TAKING ALBUTEROL SULFATE 1.25 MG/3ML NEBULIZATION SOLUTION 3 ML NEEDED INHALATION EVERY 8 HRS NOT-TAKING REMERON 15 MG TABLET 1 TABLET BEFORE BEDTIME IN THE EVENING ORALLY ONCE A DAY NOT-TAKING ANTI-FUNGAL CREAM ONE APPLICATION EXTERNALLY THREE TIMES DAILY NOT-TAKING LOTEMAX 0.5 % SUSPENSION 1 DROP INTO AFFECTED EYE OPHTHALMIC FOUR TIMES A DAY NOT-TAKING REFRESH DRY EYE THERAPY 1 DROP BOTH EYES FOUR TIMES DAILY NOT-TAKING FISH OIL 1000 MG CAPSULE 1 CAPSULE ORALLY ONCE A DAY NOT-TAKING LIDODERM 5 % PATCH 1 PATCH TO INTACT SKIN REMOVE AFTER 12 HOURS EXTERNALLY ONCE A DAY MEDICATION LIST REVIEWED AND RECONCILED WITH THE PATIENT PAST MEDICAL HISTORY BIPOLAR DISORDER HX OF DVT, 1988 1998, BACK INJURY AFTER BENDING OVER TO [employer] TOY R LOWER EXTREMITY PARALYSIS 09/04/2014 AFTER BACK SURGERY ELEVATED LIVER ENZYMES ELEVATED TRIGLYCERIDES ASTHMA ALLERGIES PENICILLIN (FOR ALLERGIES USE ONLY): HIVES: ALLERGY VANCOMYCIN HCL: RED CASE SYDROME: ALLERGY KIWI: HIVES: ALLERGY LATEX (FOR ALLERGY USE ONLY): HIVES: ALLERGY RELAFEN: NAUSEA/VOMITING: ALLERGY TAPE SURGICAL HISTORY SPINAL COLUMN STIMULATOR IMPLANT 04/1999 DISKECTOMY INFUSION 04/2003 HYSTERECTOMY, TOTAL WITH BSO 2004 LEEP COLPOSCOPY GASTRIC BYPASS 11/2012 BACK SURGERY LOWER 09/04/14 SPINAL COLUMN STIMULATOR IMPLANT REMOVED 02/26/16 LEFT SUBCLAVIAN INFUSAPORT HOSPITALIZATION/MAJOR DIAGNOSTIC PROCEDURE DEHYDRATRION, LOW POTASSIUM, FRACTURED LEFT ANKLE AND TORN TENDON 04/2013 INPATIENT BH AT [facility] AFTER COMPLICATION FROM BACK SURGERY 2014 REVIEW OF SYSTEMS REVIEWED BY: PROVIDER: SRIDHAR FATIMA . CONSTITUTIONAL: ANY CHANGE IN YOUR MEDICAL CONDITION? NO . CHILLS NO . FEVER NO . INFECTION: DO YOU HAVE NEW INFECTIONS? NO . DO YOU HAVE HISTORY OF MRSA? NO . MUSCULOSKELETAL: ANY NEW PATTERNS OF PAIN OR NUMBNESS? NO . GASTROENTEROLOGY: ANY NEW CHANGE IN BOWEL CONTROL? NO . GENITOURINARY: ANY NEW CHANGE IN BLADDER CONTROL? NO . IS THERE A CHANCE YOU COULD BE ? NO . HEMATOLOGY/LYMPH: DO YOU TAKE ANY BLOOD THINNERS? (FOR EXAMPLE- COUMADIN, PLAVIX, AGGRENOX, PLATEL, PRADAXA, OR XARELTO) NO . WHEN WAS YOUR LAST DOSE? DATE: TIME: . NEUROLOGY: HAVE YOU FALLEN IN THE PAST 6 MONTHS? NO . ANY NEW EXTREMITY NUMBNESS OR WEAKNESS? NO . CARDIOLOGY: DO YOU HAVE A PACEMAKER OR DEFIBRILLATOR? NO . RESPIRATORY: HAVE YOU BEEN SICK IN THE PAST WEEK? NO . FEVER NO . FLU LIKE SYMPTOMS? NO . COUGH NO . INTEGUMENTARY: DO YOU HAVE ANY RASHES OR OPEN SORES? NO . ALLERGIC/IMMUNO: ARE YOU ALLERGIC TO SHELLFISH OR IV DYE? NO . ANY NEW ALLERGIES? NO . PSYCHIATRIC: DO YOU HAVE THOUGHTS OF HURTING YOURSELF OR SOMEONE ELSE? NO . ARE YOU ABUSED, NEGLECTED, OR IN AN UNSAFE ENVIRONMENT? NO . ENDOCRINOLOGY: ARE YOU DIABETIC? NO . OTHER: DO YOU NEED ANY PRESCRIPTIONS? NO . IF YES, PLEASE LIST: ____ . ANY NEW PROBLEMS WITH YOUR MEDICATIONS? NO . WHEN DID YOU LAST EAT? ____ . WHEN DID YOU LAST DRINK? ____ . WHAT DID YOU LAST DRINK? ____ . NAME OF PERSON DRIVING YOU HOME? ____ . DO YOU HAVE ANY OTHER QUESTIONS OR CONCERNS NO . VITAL SIGNS WT 235 LBS, HT 66 IN, BMI 37.93 INDEX, BP 128/81 MM HG, HR 89 /MIN, RR 16 /MIN, TEMP 97.1 F, OXYGEN SAT % 93%, NA INITIALS AW 1114, REVIEWED BY: EM. EXAMINATION GENERAL EXAMINATION: GENERAL APPEARANCE:UNCOMFORTABLE. PSYCHAFFECT FLAT, GOOD EYE CONTACT. NECK:TRACHEA MIDLINE. NO CERVICAL OR SUPRACLAVICULAR LYMPHADENOPATHY NOTED. LUNGS:LUNG ROSE ARE CLEAR TO AUSCULTATION BILATERALLY. GOOD MOVEMENT OF AIR. HEART:S1, S2 IN A REGULAR RATE AND RHYTHM. NO SIGNIFICANT MURMURS, RUBS OR GALLOPS NOTED. BACK:PERILUMBAR TENDERNESS, BILATERAL SI JOINT TENDERNESS.RIGHT LEG MUSCLE STRENGTH 3/5.LEFT LEG 3/5.PATIENT IS ABLE TO STAND UP INDEPENDENTLY AND WALK UNASSISTED WITH STEADY GAIT.. ASSESSMENTS POST LAMINECTOMY SYNDROME - M96.1 (PRIMARY) CHRONIC PRESCRIPTION OPIATE USE - Z79.891 SACROILIAC JOINT PAIN - M53.3 TREATMENT POST LAMINECTOMY SYNDROME REFILL CYCLOBENZAPRINE HCL TABLET, 10 MG, 1 TABLET, ORALLY, THREE TIMES A DAY NEEDED, 30 DAY(S), 90, REFILLS 1 REFILL MORPHINE SULFATE TABLET, 15 MG, 1 TABLET NEEDED, ORALLY, Q8H PRN MDD3, 30 DAY(S), 90, REFILLS 0 REFILL LYRICA CAPSULE, 200 MG, 1 CAPSULE, ORALLY, TID MDD3, 30 DAY(S), 90, REFILLS 2 PROCEDURE CODES FA211 ESTABILISHED PATIENT [facility] FACILITY CHARGE G8730 PAIN ASSESS POS TOOL F/U PLAN DOC G8427 DOC MEDS VERIFIED W/PT OR RE DISPOSITION & COMMUNICATION FOLLOW UP 2 MONTHS ELECTRONICALLY SIGNED BY KUSHAL DOMINGO ON 11/17/2016 AT 08:22 PM EDT DISCLAIMER : THIS IS A VISIT SUMMARY EXTRACTED FROM THE [employer] CHART. IT IS NOT A COPY OF THE [employer] PROGRESS NOTE. MTDD
== END ==
LOC: M PAIN 11:15
PROVIDERS: ATTEND Nurse Practitioner Family
DX: G89.29 Other chronic pain (principal); M96.1 Postlaminectomy syndrome, not elsewhere classified; M53.3 Sacrococcygeal disorders, not elsewhere classified; F31.9 Bipolar disorder, unspecified; Z86.718 Personal history of other venous thrombosis and embolism; Z79.891 Long term (current) use of opiate analgesic; J45.909 Unspecified asthma, uncomplicated; Z79.899 Other long term (current) drug therapy; Z98.84 Bariatric surgery status; Z88.0 Allergy status to penicillin; Z91.040 Latex allergy status; Z91.048 Other nonmedicinal substance allergy status; Z88.8 Allergy status to other drugs, medicaments and biological substances

== ENCOUNTER → 2016-11-12 | Outpatient (CLI) | payer MEDICARE, MEDICAID ==
--- NOTE | 2016-11-12 12:01 | REP ---
Clinical: Spondylosis. Comparison: 06/28/2005 Technique: AP, lateral, flexion/extension, bilateral oblique, and open-mouth views. Findings: Alignment and lordosis is maintained. There is no evidence for acute fracture / compression injury or subluxation. Very mild degenerative changes are identified at the C6-7 level with subtle anterior spurring and minimal disc space narrowing. Minimal disc space narrowing is also suggested at the C5-6 level. Oblique views cannot exclude mild foraminal narrowing. Open mouth view demonstrates normal C1-C2 articulation and odontoid process. Impression: Mild degenerative changes. Signed by Richar Pineda MD 11/12/2016 11:53 A
--- NOTE | 2016-11-12 12:04 | REP ---
Clinical: Spondylosis. Technique: AP, lateral, bilateral oblique, flexion/extension and coned-down views of the lumbosacral spine. Comparison: 06/28/2005 Findings: Mild osteopenia is suggested. Endplate sclerosis and disc space narrowing appreciated at the L5-S1 and L1-2 level along with mild hypertrophic facet changes at L4 and L5. No acute fracture / compression injury or subluxation. Alignment and lordosis are maintained. Impression: Moderate focal degenerative disc osteophyte complex and L5-S1 and L1-L2. Signed by Richar Pineda MD 11/12/2016 11:56 A
== END ==
LOC: M RAD 10:56
PROVIDERS: ATTEND Neurological Surgery
DX: M47.892 Other spondylosis, cervical region (principal); M47.896 Other spondylosis, lumbar region; M25.78 Osteophyte, vertebrae; M51.36 Other intervertebral disc degeneration, lumbar region; M51.37 Other intervertebral disc degeneration, lumbosacral region; M50.323 Other cervical disc degeneration at C6-C7 level

== ENCOUNTER → 2017-01-10 | Outpatient (CLI) | payer MEDICARE, MEDICAID, OTHER | LOC: M PAIN 11:00 | PROVIDERS: ATTEND Nurse Practitioner Family | DX: G89.29 Other chronic pain (principal); M96.1 Postlaminectomy syndrome, not elsewhere classified; M53.3 Sacrococcygeal disorders, not elsewhere classified; F31.9 Bipolar disorder, unspecified; J45.909 Unspecified asthma, uncomplicated; E78.1 Pure hyperglyceridemia; Z98.84 Bariatric surgery status; Z79.899 Other long term (current) drug therapy; Z88.0 Allergy status to penicillin; Z79.891 Long term (current) use of opiate analgesic; Z86.718 Personal history of other venous thrombosis and embolism; Z88.1 Allergy status to other antibiotic agents; Z91.018 Allergy to other foods; Z91.040 Latex allergy status; Z91.048 Other nonmedicinal substance allergy status; Z88.8 Allergy status to other drugs, medicaments and biological substances ==

== ENCOUNTER → 2017-01-14 | Outpatient (CLI) | payer MEDICARE, MEDICAID, OTHER ==
--- NOTE | 2017-02-02 01:24 | ECWPNPC ---
PATIENT NAME: CECILIO CONNER : 1965 GENDER: FEMALE VISIT DATE: 01/14/2017 DISCHARGE DATE: 01/14/17 1133 VISIT LOCKED DATE TIME: PHYSICIAN: LORENZO CHIANG RESOURCE: LORENZO CHIANG REASON FOR APPOINTMENT 1. LOW BACK AND LEG PAIN HISTORY OF PRESENT ILLNESS HISTORY OF PRESENT ILLNESS: PAIN THE PATIENT DESCRIBES THE PAIN... 51 YEAR OLD FEMALE PATIENT WITH HISTORY OF CHRONIC LOW BACK AND LEG PAIN. PATIENT DESCRIBES THE PAIN ACHING, TENDER, SORE, SHOOTING, SHARP WITH A PAIN SCORE OF 7/10. PATIENT STATES THAT ANY TYPE OF ACTIVITY INCREASES THE PAIN IN THE LOWER BACK AND THE LEG. MRS. CONNER REPORTS HAVING THE MRI'S COMPLETED BUT IS AWAITING APPROVAL FOR THE PSYCHOLOGICAL EVALUATION. PATIENT DENIES UNEXPLAINABLE WEIGHT LOSS, FEVER, CHILLS, NEW CHANGES ON HER URINARY OR BOWEL CONTROL. FALL RISK SCREENING: SCREENING :NO FALLS IN THE PAST YEAR CURRENT MEDICATIONS TAKING TOPAMAX 200 MG TABLET 1 TABLET ORALLY TWICE A DAY TAKING LEVOTHYROXINE SODIUM 50 MCG TABLET 1 TABLET ON AN EMPTY STOMACH IN THE MORNING P.O. ONCE A DAY TAKING OMEPRAZOLE 40 MG CAPSULE DELAYED RELEASE 1 CAPSULE P.O. TWICE DAILY TAKING VITAMIN D-3 2000UNITS TABLET 2 TABLETS P.O. TWICE A DAY TAKING MULTIVITAMINS OTC TABLET 1 TSP P.O. ONCE A DAY TAKING CITRACAL + D 250-200 MG-UNIT TABLET 1 TABLET P.O. TWICE A DAY TAKING PROAIR HFA AEROSOL SOLUTION 2 PUFFS NEEDED INHALATION TWICE A DAY TAKING RESTASIS 1 DROP OPHTHALMIC TWICE A DAY BOTH EYES TAKING VORTIOXETINE HBR 20 MG TABLET 1 TABLET ORALLY ONCE A DAY (TRINTELLIX) TAKING POTASSIUM 1 TAB ORAL ONCE DAILY TAKING LIDOCAINE HCL 2 % GEL DIRECTED EXTERNALLY BID TO INCISIONAL AREA TAKING VENLAFAXINE HCL 37.5 MG TABLET 1 TABLET WITH FOOD ORALLY QD TAKING THERATEARS NUTRITION - CAPSULE 3 CAPSULES IN THE MORNING ORALLY ONCE A DAY TAKING BUDESONIDE (INHALATION) 1 INHALATION NEBULIZER TWICE DAILY TAKING REFRESH 1 % SOLUTION 1 DROP INTO AFFECTED EYE NEEDED OPHTHALMIC 24 TIME(S) A DAY TAKING ALPRAZOLAM ER 2 MG TABLET EXTENDED RELEASE 24 HOUR 1 TABLET IN THE MORNING ORALLY ONCE A DAY TAKING MECLIZINE HCL 12.5 MG TABLET 1 TAB ORALLY FOUR TIMES DAILY NEEDED TAKING CETIRIZINE HCL 10 MG TABLET 1 TABLET ORALLY ONCE A DAY TAKING SINGULAIR 10 MG TABLET 1 TABLET IN THE EVENING ORALLY ONCE A DAY TAKING VRAYLAR 3 MG CAPSULE 1 CAPSULE ORALLY ONCE A DAY TAKING ALBUTEROL-IPRATROPIUM 2.5-0.5 MG/3ML SOLUTION 3 ML INHALATION EVERY 6 HRS TAKING CYCLOBENZAPRINE HCL 10 MG TABLET 1 TABLET ORALLY THREE TIMES A DAY NEEDED TAKING MORPHINE SULFATE 15 MG TABLET 1 TABLET NEEDED ORALLY Q8H PRN MDD3 TAKING LYRICA 200 MG CAPSULE 1 CAPSULE ORALLY TID MDD3 TAKING CELEBREX 200 MG CAPSULE 1 CAPSULE WITH FOOD ORALLY ONCE A DAY MEDICATION LIST REVIEWED AND RECONCILED WITH THE PATIENT PAST MEDICAL HISTORY BIPOLAR DISORDER HX OF DVT, 1988 1998, BACK INJURY AFTER BENDING OVER TO [employer]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 CONSTITUTIONAL: ANY CHANGE IN YOUR MEDICAL CONDITION? NO . CHILLS NO . FEVER NO . INFECTION: DO YOU HAVE NEW INFECTIONS? NO . DO YOU HAVE HISTORY OF MRSA? NO . MUSCULOSKELETAL: ANY NEW PATTERNS OF PAIN OR NUMBNESS? NO . GASTROENTEROLOGY: ANY NEW CHANGE IN BOWEL CONTROL? NO . GENITOURINARY: ANY NEW CHANGE IN BLADDER CONTROL? NO . IS THERE A CHANCE YOU COULD BE ? NO . HEMATOLOGY/LYMPH: DO YOU TAKE ANY BLOOD THINNERS? (FOR EXAMPLE- COUMADIN, PLAVIX, AGGRENOX, PLATEL, PRADAXA, OR XARELTO) NO . WHEN WAS YOUR LAST DOSE? DATE: TIME: . NEUROLOGY: HAVE YOU FALLEN IN THE PAST 6 MONTHS? NO . ANY NEW EXTREMITY NUMBNESS OR WEAKNESS? NO . CARDIOLOGY: DO YOU HAVE A PACEMAKER OR DEFIBRILLATOR? NO . RESPIRATORY: HAVE YOU BEEN SICK IN THE PAST WEEK? NO . FEVER NO . FLU LIKE SYMPTOMS? NO . COUGH NO . INTEGUMENTARY: DO YOU HAVE ANY RASHES OR OPEN SORES? NO . ALLERGIC/IMMUNO: ARE YOU ALLERGIC TO SHELLFISH OR IV DYE? NO . ANY NEW ALLERGIES? NO . PSYCHIATRIC: DO YOU HAVE THOUGHTS OF HURTING YOURSELF OR SOMEONE ELSE? NO . ARE YOU ABUSED, NEGLECTED, OR IN AN UNSAFE ENVIRONMENT? NO . ENDOCRINOLOGY: ARE YOU DIABETIC? NO . OTHER: DO YOU NEED ANY PRESCRIPTIONS? NO . IF YES, PLEASE LIST: ____ . ANY NEW PROBLEMS WITH YOUR MEDICATIONS? NO . WHEN DID YOU LAST EAT? ____ . WHEN DID YOU LAST DRINK? ____ . WHAT DID YOU LAST DRINK? ____ . NAME OF PERSON DRIVING YOU HOME? ____ . DO YOU HAVE ANY OTHER QUESTIONS OR CONCERNS NO . VITAL SIGNS WT 195.0 LBS, HT 66 IN, BMI 31.47 INDEX, BP 114/67 MM HG, HR 83 /MIN, RR 16 /MIN, TEMP 96.9 F, OXYGEN SAT % 96%, NA INITIALS TL 1028. EXAMINATION : PATIENT IS ALERT O X 3 AND COOPERATIVE. TENDERNESS IN THE LOWER BACK AND PARASPINAL MUSCLE GROUP. MRI OF THE LUMBAR SPINE DONE ON 04/14/16 SHOWS POSTOPERATIVE CHANGES, DEGENERATIVE DISC DISEASE, WELL A DISC PROTRUSION AT L1-L2. MRI OF THE THORACIC SPINE DONE ON 04/14/16 SHOWS POST OPERATIVE CHANGES AT T11 WITH A LAMINECTOMY DEFECT AND A SEROMA. ASSESSMENTS POSTLAMINECTOMY SYNDROME, NOT ELSEWHERE CLASSIFIED - M96.1 (PRIMARY) INTERVERTEBRAL DISC DISORDER WITH RADICULOPATHY OF LUMBAR REGION - M51.16 TREATMENT POSTLAMINECTOMY SYNDROME, NOT ELSEWHERE CLASSIFIED NOTES: WE DISCUSSED SEVERAL ISSUES WITH MRS. CONNER'S PAIN MANAGEMENT CASE. AT THIS TIME THE PATIENT WILL CONTINUE WITH THE SAME MEDICATION REGIME BEFORE. I WOULD LIKE TO DISCUSS THE MRI'S WITH THE RADIOLOGIST TO CONFIRM THERE IS ENOUGH ROOM FOR THE LEADS TO PASS THROUGH. AT THIS TIME THE PATIENT IS AWAITING HER PSYCHOLOGICAL EVALUATION. PATIENT STATES AT THIS TIME SHE WOULD STILL LIKE TO PROCEED WITH THE DCS TRIAL. PATIENT WILL FOLLOW UP IN 6 WEEKS. INSTRUCTIONS WERE GIVEN, QUESTIONS WERE ANSWERED, PATIENT REPORTS UNDERSTANDING AND AGREES WITH THE PLAN. I, SRI DIMAS, DOCUMENTED THE ABOVE INFORMATION ACTING A SCRIBE FOR DR. CHIANG. I HAVE REVIEWED THE ABOVE DOCUMENT, WRITTEN BY SRI TURK AND I VERIFY THAT IT IS ACCURATE. PROCEDURE CODES FA211 ESTABILISHED PATIENT [facility] CHARGE DISPOSITION & COMMUNICATION FOLLOW UP 3 WEEKS ELECTRONICALLY SIGNED BY LORENZO CHIANG MD ON 01/31/2017 AT 06:38 PM EST DISCLAIMER : THIS IS A VISIT SUMMARY EXTRACTED FROM THE [employer] CHART. IT IS NOT A COPY OF THE [employer] PROGRESS NOTE. ZACH
== END ==
LOC: M PAIN 10:15
PROVIDERS: ATTEND Anesthesiology
DX: M96.1 Postlaminectomy syndrome, not elsewhere classified (principal); M51.16 Intervertebral disc disorders with radiculopathy, lumbar region; G89.29 Other chronic pain; Z79.891 Long term (current) use of opiate analgesic; Z79.899 Other long term (current) drug therapy; Z88.0 Allergy status to penicillin; Z88.1 Allergy status to other antibiotic agents; Z88.8 Allergy status to other drugs, medicaments and biological substances; Z91.018 Allergy to other foods; Z91.040 Latex allergy status; Z91.048 Other nonmedicinal substance allergy status

== ENCOUNTER → 2017-03-01 | Outpatient (CLI) | payer MEDICARE, MEDICAID, OTHER | LOC: M PAIN 14:15 | DX: M96.1 Postlaminectomy syndrome, not elsewhere classified (principal); F31.9 Bipolar disorder, unspecified; J45.909 Unspecified asthma, uncomplicated; L23.1 Allergic contact dermatitis due to adhesives; Z88.0 Allergy status to penicillin; Z88.5 Allergy status to narcotic agent; Z88.8 Allergy status to other drugs, medicaments and biological substances; Z91.018 Allergy to other foods; Z91.040 Latex allergy status; Z79.891 Long term (current) use of opiate analgesic; Z79.899 Other long term (current) drug therapy | CPT/HCPCS: G0463 ==

== ENCOUNTER → 2017-03-09 | Outpatient (CLI) | payer MEDICARE, MEDICAID, OTHER | LOC: M PAIN 15:45 | DX: G89.29 Other chronic pain (principal); M96.1 Postlaminectomy syndrome, not elsewhere classified; M51.16 Intervertebral disc disorders with radiculopathy, lumbar region; F31.9 Bipolar disorder, unspecified; J45.909 Unspecified asthma, uncomplicated; Z88.0 Allergy status to penicillin; Z88.1 Allergy status to other antibiotic agents; Z88.8 Allergy status to other drugs, medicaments and biological substances; Z91.040 Latex allergy status; Z91.018 Allergy to other foods; Z91.048 Other nonmedicinal substance allergy status; Z79.899 Other long term (current) drug therapy; Z98.84 Bariatric surgery status | CPT/HCPCS: G0463 ==

== ENCOUNTER → 2017-03-30 | Outpatient (CLI) | payer MEDICARE, MEDICAID, OTHER | LOC: M PAIN 13:30 | DX: G89.29 Other chronic pain (principal); M54.2 Cervicalgia; M79.1 Myalgia; F31.9 Bipolar disorder, unspecified; J45.909 Unspecified asthma, uncomplicated; Z79.899 Other long term (current) drug therapy; Z88.0 Allergy status to penicillin; Z88.1 Allergy status to other antibiotic agents; Z91.040 Latex allergy status; Z91.018 Allergy to other foods; Z91.048 Other nonmedicinal substance allergy status; Z98.84 Bariatric surgery status | CPT/HCPCS: G0463 ==

== ENCOUNTER → 2017-04-05 | Outpatient (CLI) | payer MEDICARE, MEDICAID, OTHER ==
[~2017-04-05] MED LIST changes: -/PANT40TA; -/PREG100CA PO; -/PREG50CA PO; -ABIL10TA OR; -ADV100INH INH; -ALL10TAB27 PO; -ALPR2TAB5 PO; -ATIV0.5T; -BACL10TA2; -BACL10TA2 PO; -BRIN1TAB3 PO; -BRIN20TA PO; -BRIN5TAB PO; -BUDE0.5S6 INH; +BUPIVACAINE HCL 0.25% 10 ML VIAL As Ordered; +BUPIVACAINE HCL 0.25% 30 ML VIAL As Ordered; -CITRTAB10 PO; -CYCL10TA PO; -EFFE150C OR; -ESZO1TAB3 PO; -FAMO20TA2 OR; -FAMO40TA3 PO; -FLUO10CA8 PO; -IBUP600T; -LAMICTAL; -LEVO50TA2 OR; -LEVO50TA5 PO; -LIDO1DIS2 TD; -LIDO5DIS41 TD; -LITH300T2 OR; -LORA1TAB12 PO; -LORA2TAB PO; -LOVE1INJ SUBQ; -LUNE3TAB PO; -LYRI150C PO; -LYRI200C PO; -MELA1CAP PO; -MIRT15TA3 PO; -MORP-38 PO; -MULT1TAB10 PO; -MULTTAB4 PO; -MURO5OIN OU; -Morphine IR; -NEXI20CA PO; -NUCY50TA14 PO; -OMEP40CA2 PO; -OSCAL D PO; -OXYC10TA12 PO; -OXYC10TA56; -OXYCODONE; -PERCOCET PO; -POTA20TA6 PO; -PRAZ2CAP PO; -PRISTIQ; -PROAAER10 IN; -QUET1TAB10 PO; -REME15TA PO; -REST0.05 OU; -RISP1SOL15 PO; -RISP4TAB33 PO; -SELE6PA TD; -SERO1TAB2 PO; -SOMA250T PO; -SOMA350T PO; -STOO100C PO; -THERCAP7 PO; -TIZA2CAP3 PO; -TOPA200T7 PO; -TOPI200T; -TOPI200T OR; -TOPI200T7 PO; -TRAM50TA2 OR; -TRAZ300T2; +TRIAMCINOLONE ACETONIDE SUSP 40 MG/ML VIAL (J3301) As Ordered; -TUMS500C PO; -VALI10TA PO; -VENL37TA PO; -VICO5TAB PO; -VILAZODONE PO; -VITA10002 PO; -VITA200015 PO; -VITA500T53 PO; -VITAMIN B12 PO; -VOLT1GEL15 TD; -VOLT1GEL2 TD; -XANA2TAB PO; -ZIPR80CAP; -ZOLO100T PO; -[UNRECOGNIZED DRUG - OTHER] PO; -[UNRECOGNIZED DRUG - OTHER] TD; +diazePAM 5 MG TAB As Ordered; -estroven; +oxyCODONE 5MG TAB As Ordered
== END ==
LOC: M PAIN 13:30
DX: G89.29 Other chronic pain (principal); M54.2 Cervicalgia; M25.511 Pain in right shoulder; M79.1 Myalgia; F31.9 Bipolar disorder, unspecified; Z79.899 Other long term (current) drug therapy; Z88.0 Allergy status to penicillin; Z88.1 Allergy status to other antibiotic agents; Z88.8 Allergy status to other drugs, medicaments and biological substances; Z91.018 Allergy to other foods; Z91.040 Latex allergy status; Z91.048 Other nonmedicinal substance allergy status
CPT/HCPCS: J3301

== ENCOUNTER → 2017-04-12 | Outpatient (CLI) | payer MEDICARE, MEDICAID, OTHER | LOC: M PAIN 15:45 | DX: G89.29 Other chronic pain (principal); G43.109 Migraine with aura, not intractable, without status migrainosus; M54.2 Cervicalgia; M79.1 Myalgia; F31.9 Bipolar disorder, unspecified; J45.909 Unspecified asthma, uncomplicated; Z79.899 Other long term (current) drug therapy; Z88.0 Allergy status to penicillin; Z88.1 Allergy status to other antibiotic agents; Z88.8 Allergy status to other drugs, medicaments and biological substances; Z91.018 Allergy to other foods; Z91.040 Latex allergy status; Z91.048 Other nonmedicinal substance allergy status | CPT/HCPCS: G0463 ==

== ENCOUNTER → 2017-04-22 | Outpatient (CLI) | payer MEDICARE, MEDICAID, OTHER | LOC: M PAIN 14:00 | DX: M79.1 Myalgia (principal); M54.2 Cervicalgia; M96.1 Postlaminectomy syndrome, not elsewhere classified; J45.909 Unspecified asthma, uncomplicated; Z79.899 Other long term (current) drug therapy; Z86.718 Personal history of other venous thrombosis and embolism; Z88.8 Allergy status to other drugs, medicaments and biological substances; Z91.018 Allergy to other foods; Z91.040 Latex allergy status; Z91.048 Other nonmedicinal substance allergy status | CPT/HCPCS: G0463 ==

== ENCOUNTER → 2017-06-08 | Outpatient (CLI) | payer MEDICARE, MEDICAID, OTHER | LOC: M PAIN 09:45 | DX: M79.1 Myalgia (principal); M54.2 Cervicalgia; M96.1 Postlaminectomy syndrome, not elsewhere classified; F31.9 Bipolar disorder, unspecified; J45.909 Unspecified asthma, uncomplicated; Z79.01 Long term (current) use of anticoagulants; Z79.899 Other long term (current) drug therapy; Z88.0 Allergy status to penicillin; Z88.8 Allergy status to other drugs, medicaments and biological substances; Z91.018 Allergy to other foods; Z91.040 Latex allergy status; Z91.09 Other allergy status, other than to drugs and biological substances; Z86.718 Personal history of other venous thrombosis and embolism; Z98.84 Bariatric surgery status | CPT/HCPCS: G0463 ==

== ENCOUNTER 2017-07-11 09:42 | Outpatient (CLI) | payer MEDICARE, MEDICAID ==
[2017-07-11] MEDS: SODIUM CHLORIDE 0.9% INJ 10 ML SYR IV (10:12)
== END 2017-07-11 10:30 | disposition home or self-care (01) ==
LOC: M INFU 09:42
DX: Z46.89 Encounter for fitting and adjustment of other specified devices (principal); J45.909 Unspecified asthma, uncomplicated; E03.9 Hypothyroidism, unspecified; Z79.899 Other long term (current) drug therapy; Z91.018 Allergy to other foods; Z91.040 Latex allergy status; Z88.0 Allergy status to penicillin; Z88.8 Allergy status to other drugs, medicaments and biological substances
CPT/HCPCS: 96523

== ENCOUNTER → 2017-09-07 | Outpatient (CLI) | payer MEDICARE, MEDICAID, OTHER | LOC: M PAIN 12:00 | DX: M79.1 Myalgia (principal); M96.1 Postlaminectomy syndrome, not elsewhere classified; F31.9 Bipolar disorder, unspecified; J45.909 Unspecified asthma, uncomplicated; Z79.01 Long term (current) use of anticoagulants; Z79.891 Long term (current) use of opiate analgesic; Z79.899 Other long term (current) drug therapy; Z88.0 Allergy status to penicillin; Z88.8 Allergy status to other drugs, medicaments and biological substances; Z91.018 Allergy to other foods; Z91.040 Latex allergy status; Z91.048 Other nonmedicinal substance allergy status | CPT/HCPCS: G0463 ==

== ENCOUNTER → 2017-09-09 | Outpatient (CLI) | payer MEDICARE, MEDICAID, OTHER | LOC: M PAIN 11:00 | DX: G89.29 Other chronic pain (principal); M79.1 Myalgia; F31.9 Bipolar disorder, unspecified; J45.909 Unspecified asthma, uncomplicated; E78.1 Pure hyperglyceridemia; Z86.718 Personal history of other venous thrombosis and embolism; Z79.01 Long term (current) use of anticoagulants; Z79.891 Long term (current) use of opiate analgesic; Z79.899 Other long term (current) drug therapy; Z88.0 Allergy status to penicillin; Z88.1 Allergy status to other antibiotic agents; Z91.040 Latex allergy status; Z91.048 Other nonmedicinal substance allergy status; Z91.018 Allergy to other foods | CPT/HCPCS: J3301 ==

== ENCOUNTER → 2017-10-12 | Outpatient (CLI) | payer MEDICARE, MEDICAID, OTHER | LOC: M PAIN 10:30 | DX: M47.22 Other spondylosis with radiculopathy, cervical region (principal); M96.1 Postlaminectomy syndrome, not elsewhere classified; F31.9 Bipolar disorder, unspecified; Z79.899 Other long term (current) drug therapy; Z88.0 Allergy status to penicillin; Z88.1 Allergy status to other antibiotic agents; Z88.8 Allergy status to other drugs, medicaments and biological substances; Z91.040 Latex allergy status; Z91.018 Allergy to other foods; Z91.09 Other allergy status, other than to drugs and biological substances | CPT/HCPCS: G0463 ==

== ENCOUNTER → 2018-02-08 | Outpatient (CLI) | payer MEDICARE, MEDICAID, OTHER ==
[~2018-02-08] MED LIST changes: +/PANT40TA; +/PREG100CA PO; +/PREG50CA PO; +ABIL10TA OR; +ADV100INH INH; +ALL10TAB27 PO; +ALPR2TAB5 PO; +ATIV0.5T; +BACL10TA2; +BACL10TA2 PO; +BRIN1TAB3 PO; +BRIN20TA PO; +BRIN5TAB PO; +BUDE0.5S6 INH; -BUPIVACAINE HCL 0.25% 10 ML VIAL As Ordered; -BUPIVACAINE HCL 0.25% 30 ML VIAL As Ordered; +CITRTAB10 PO; +CYCL10TA PO; +EFFE150C OR; +ESZO1TAB6 PO; +FAMO20TA2 OR; +FAMO40TA3 PO; +FLUO10CA8 PO; +IBUP600T; +LAMICTAL; +LEVO50TA2 OR; +LEVO50TA5 PO; +LIDO1DIS2 TD; +LIDO5DIS41 TD; +LITH300T2 OR; +LORA1TAB12 PO; +LORA2TAB PO; +LOVE1INJ SUBQ; +LUNE3TAB PO; +LYRI150C PO; +LYRI200C PO; +MELA1CAP PO; +MIRT15TA3 PO; +MORP-38 PO; +MULT1TAB10 PO; +MULTTAB4 PO; +MURO5OIN OU; +Morphine IR; +NEXI20CA PO; +NUCY50TA14 PO; +OMEP40CA2 PO; +OSCAL D PO; +OXYC-403 PO; +OXYC10TA12 PO; +OXYC10TA56; +OXYCODONE; +PERC10TA26 PO; +PERCOCET PO; +POTA20TA6 PO; +PRAZ2CAP PO; +PRISTIQ; +PROAAER10 IN; +QUET1TAB10 PO; +REME15TA PO; +REST0.05 OU; +RISP1SOL15 PO; +RISP4TAB33 PO; +SELE6PA TD; +SERO1TAB2 PO; +SOMA250T PO; +SOMA350T PO; +STOO100C PO; +THERCAP7 PO; +TIZA2CAP PO; +TIZA4CAP PO; +TOPA200T7 PO; +TOPI200T; +TOPI200T OR; +TOPI200T7 PO; +TRAM50TA2 OR; +TRAZ300T2; -TRIAMCINOLONE ACETONIDE SUSP 40 MG/ML VIAL (J3301) As Ordered; +TUMS500C PO; +VALI10TA PO; +VENL37TA PO; +VICO5TAB PO; +VILAZODONE PO; +VITA10002 PO; +VITA200015 PO; +VITA500T53 PO; +VITAMIN B12 PO; +VOLT1GEL15 TD; +VOLT1GEL2 TD; +XANA2TAB PO; +ZIPR80CAP; +ZOLO100T PO; +[UNRECOGNIZED DRUG - CODE] PO; +[UNRECOGNIZED DRUG - OTHER] PO; +[UNRECOGNIZED DRUG - OTHER] TD; -diazePAM 5 MG TAB As Ordered; +estroven; -oxyCODONE 5MG TAB As Ordered
--- NOTE | 2018-02-28 23:58 | ECWPNPC ---
PATIENT NAME: CECILIO CONNER : 1965 GENDER: FEMALE VISIT DATE: 02/08/2018 DISCHARGE DATE: 02/08/18 1233 VISIT LOCKED DATE TIME: PHYSICIAN: LORENZO CHIANG MD RESOURCE: LORENZO CHIANG MD REASON FOR APPOINTMENT 1. PRE SEDATE- BILAT C4/5-C5/6 THERAPEUTIC FACET BLOCK HISTORY OF PRESENT ILLNESS DEPRESSION SCREENING: PHQ-2 IN LAST TWO WEEKS HAVE YOU BEEN BOTHERED BY LITTLE INTEREST OR PLEASURE IN DOING THINGSNO FEELING DOWN, DEPRESSED, OR HOPELESSNO HISTORY OF PRESENT ILLNESS: PAIN THE PATIENT DESCRIBES THE PAIN... 52 YEAR OLD FEMALE PATIENT WITH A HISTORY OF NECK PAIN. PATIENT DESCRIBES THE PAIN ACHING, BURNING, TENDER, AND HAVING IT ALL THE TIME WITH A PAIN SCORE 6-10/10 DEPENDING ON PHYSICAL ACTIVITY. THE PATIENT STATES THAT THE PAIN HAS WORSENED IN THE LAST FEW MONTHS. THE PATIENT STATES THAT THE PAIN RADIATES TOWARDS HER HEAD. THE PATIENT IS CURRENTLY TAKING CYMBALTA AND TIZANIDINE TO STATE ARCHIVIST IN PAIN RELIEF. PATIENT DENIES UNEXPLAINABLE WEIGHT LOSS, FEVER, CHILLS, NEW CHANGES ON HER URINARY OR BOWEL CONTROL. FALL RISK SCREENING: SCREENING :NO FALLS IN THE PAST YEAR CURRENT MEDICATIONS TAKING TOPAMAX 200 MG TABLET 1 TABLET ORALLY TWICE A DAY TAKING LEVOTHYROXINE SODIUM 50 MCG TABLET 1 TABLET ON AN EMPTY STOMACH IN THE MORNING P.O. ONCE A DAY TAKING OMEPRAZOLE 40 MG CAPSULE DELAYED RELEASE 1 CAPSULE P.O. TWICE DAILY TAKING VITAMIN D-3 2000UNITS TABLET 1 TABLET P.O. TWICE A DAY TAKING MULTIVITAMINS OTC TABLET 1 TSP P.O. ONCE A DAY TAKING CITRACAL + D 250-200 MG-UNIT TABLET 1 TABLET P.O. TWICE A DAY TAKING PROAIR HFA AEROSOL SOLUTION 2 PUFFS NEEDED INHALATION TWICE A DAY TAKING RESTASIS 1 DROP OPHTHALMIC TWICE A DAY BOTH EYES TAKING VORTIOXETINE HBR 20 MG TABLET 1 TABLET ORALLY ONCE A DAY (TRINTELLIX), NOTES: 09/09/17 0600 TAKING POTASSIUM 1 TAB ORAL ONCE DAILY TAKING BUDESONIDE (INHALATION) 1 INHALATION NEBULIZER TWICE DAILY NEEDED TAKING REFRESH 1 % SOLUTION 1 DROP INTO AFFECTED EYE NEEDED OPHTHALMIC 24 TIME(S) A DAY TAKING ALPRAZOLAM ER 3 MG TABLET EXTENDED RELEASE 24 HOUR 1 TABLET IN THE MORNING ORALLY ONCE A DAY, NOTES: 09/09/17599 TAKING MECLIZINE HCL 12.5 MG TABLET 1 TAB ORALLY FOUR TIMES DAILY NEEDED, NOTES: > 1 MONTH TAKING CETIRIZINE HCL 10 MG TABLET 1 TABLET ORALLY ONCE A DAY, NOTES: 09/09/17599 TAKING SINGULAIR 10 MG TABLET 1 TABLET IN THE EVENING ORALLY ONCE A DAY, NOTES: 09/08/17 TAKING VRAYLAR 4.5 MG CAPSULE 1 CAPSULE ORALLY ONCE A DAY, NOTES: 09/09/17599 TAKING ALBUTEROL-IPRATROPIUM 2.5-0.5 MG/3ML SOLUTION 3 ML INHALATION EVERY 6 HRS NEEDED NEBULIZER, NOTES: 3 WEEKS TAKING DOCUSATE SODIUM 100 MG CAPSULE 2 CAPSULES NEEDED ORALLY ONCE A DAY, NOTES: 09/09/17599 TAKING VENLAFAXINE HCL 37.5 MG TABLET 1 TABLET WITH FOOD ORALLY ONCE A DAY, NOTES: 09/09/17599 TAKING XARELTO 10 MG TABLET 1 TABLET WITH FOOD ORALLY ONCE A DAY, NOTES: 09/09/17599 TAKING LYRICA 200 MG CAPSULE 1 CAPSULE ORALLY TID MDD3, NOTES: 09/09/17599 TAKING ROBAXIN-750 750 MG TABLET 1 TABLET ORALLY Q8H PRN, NOTES: NOT STARTED YET TAKING NORCO 325-10 MG TABLET 1 TABLET NEEDED ORALLY Q8H PRN MDD3, NOTES: 09/08/17 TAKING CYCLOBENZAPRINE HCL 10 MG TABLET 1 TABLET ORALLY THREE TIMES A DAY NEEDED, NOTES: HELD FOR NOW DISCONTINUED THERATEARS NUTRITION - CAPSULE 3 CAPSULES IN THE MORNING ORALLY ONCE A DAY DISCONTINUED LIDOCAINE HCL 2 % GEL DIRECTED EXTERNALLY BID TO INCISIONAL AREA MEDICATION LIST REVIEWED AND RECONCILED WITH THE PATIENT PAST MEDICAL HISTORY BIPOLAR DISORDER HX OF DVT, 1988 1998, BACK INJURY AFTER 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 TOY R LOWER EXTREMITY PARALYSIS 09/04/2014 AFTER BACK SURGERY ELEVATED LIVER ENZYMES ELEVATED TRIGLYCERIDES ASTHMA 11/2016 FELL; 5 FX RIBS ON RIGHT AND RIGHT ANKLE FX ALLERGIES PENICILLIN (FOR ALLERGIES USE ONLY): HIVES: ALLERGY VANCOMYCIN HCL: RED CASE SYDROME: ALLERGY KIWI: HIVES: ALLERGY LATEX (FOR ALLERGY USE ONLY): HIVES: ALLERGY RELAFEN: NAUSEA/VOMITING: ALLERGY TAPE SURGICAL HISTORY SPINAL COLUMN STIMULATOR IMPLANT 04/1999 DISKECTOMY INFUSION 04/2003 HYSTERECTOMY, TOTAL WITH BSO 2004 LEEP COLPOSCOPY GASTRIC BYPASS 11/2012 BACK SURGERY LOWER 09/04/14 SPINAL COLUMN STIMULATOR IMPLANT REMOVED 02/26/16 LEFT SUBCLAVIAN INFUSAPORT LEFT ANKLE RECONSTRUCTION 04/2017 RIGHT ANKLE SURGERY 12/15 FAMILY HISTORY FATHER: ALIVE 74 YRS MOTHER: 62 YRS, DIAGNOSED WITH HYPERTENSION, HEART DISEASE, CANCER, OTHER 2 BROTHER(S) - HEALTHY. 2 SON(S) - HEALTHY. SOCIAL HISTORY GENERAL: TOBACCO USE ARE YOU A: NONSMOKER . BMI CARE GOAL FOLLOW-UP ABOVE NORMAL BMI FOLLOW-UPDIETARY MANAGEMENT EDUCATION, GUIDANCE, AND COUNSELING, WEIGHT MONITORING ALCOHOL SCREENING DID YOU HAVE A DRINK CONTAINING ALCOHOL IN THE PAST YEAR?NO POINTS0 INTERPRETATIONNEGATIVE CAFFEINE CAFFEINE USE?NO SEXUAL HX HAD SEX IN THE LAST 12 MONTHS (VAGINAL, ORAL, OR ANAL)?NO HAVE YOU EVER HAD AN STD?NO LMP:HYSTER HIV / HEP-C SCREENING HIV TEST OFFERED TO PATIENT:YES DATE OFFERED:06/28/2016 TEST ACCEPTED:NO REASON:PATIENT DECLINED [id number] LANGUAGE LANGUAGES SPOKEN:[place] LEARNING BARRIERS / SPECIAL NEEDS BARRIERS TO LEARNING?NO HEARING IMPAIRED?NO VISION IMPAIRED?YES :CORRECTIVE LENSES HAS CONTACTS COGNITIVELY IMPAIRED?NO READINESS TO LEARN?YES LEARNING PREFERENCES?NO LEARNING CAPABILITIES PRESENT?YES EMOTIONAL BARRIERS?NO SPECIAL DEVICES?YES :WALKER, WHEELCHAIR 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 DIET: REGULAR. EXERCISE: NONE. MARITAL STATUS: .. OTHERS AT HOME: NONE. NEW PATIENT PAIN DIARY TODAY'S VISITNOTES FROM 0-10, WHAT LEVEL IS YOUR PAIN TODAY?0 PAIN CLINIC PFS, CLERGY, PUBLIC HEALTH REFERRALS PFS REFERRAL NEEDED?NO CLERGY REFERRAL NEEDED?NO PUBLIC HEALTH REFERRAL NEEDED?NO WAS THE PROVIDER NOTIFIED OF ANY PERTINENT INFO?NO HAS THE PATIENT BEEN EDUCATED REGARDING HIS/HER PLAN OF CARE?YES HAS THE PATIENT BEEN EDUCATED REGARDING PAIN, THE RISK FOR PAIN, THE IMPORTANCE OF EFFECTIVE PAIN MANAGEMENT, AND THE PAIN ASSESSMENT PROCESS?YES ADVANCE DIRECTIVE ADVANCE DIRECTIVE DISCUSSED WITH PATIENT:YES DECLINED HOSPITALIZATION/MAJOR DIAGNOSTIC PROCEDURE DEHYDRATRION, LOW POTASSIUM, FRACTURED LEFT ANKLE AND TORN TENDON 04/2013 INPATIENT BH AT [facility] AFTER COMPLICATION FROM BACK SURGERY 2014 INPT FOR ANKLE REHABILITATION 12/15 REVIEW OF SYSTEMS REVIEWED BY: PROVIDER: LORENZO CHIANG MD . CONSTITUTIONAL: ANY CHANGE IN YOUR MEDICAL CONDITION? YES, RIGHT ANKLE SURGERY . CHILLS NO . FEVER NO . INFECTION: DO YOU HAVE NEW INFECTIONS? NO . DO YOU HAVE HISTORY OF MRSA? NO . MUSCULOSKELETAL: ANY NEW PATTERNS OF PAIN OR NUMBNESS? NO . GASTROENTEROLOGY: ANY NEW CHANGE IN BOWEL CONTROL? NO . GENITOURINARY: ANY NEW CHANGE IN BLADDER CONTROL? NO . IS THERE A CHANCE YOU COULD BE ? NO . HEMATOLOGY/LYMPH: DO YOU TAKE ANY BLOOD THINNERS? (FOR EXAMPLE- COUMADIN, PLAVIX, AGGRENOX, PLATEL, PRADAXA, OR XARELTO) YES . WHEN WAS YOUR LAST DOSE? DATE: TIME: 02/07/18 @0845 . NEUROLOGY: HAVE YOU FALLEN IN THE PAST 6 MONTHS? NO . ANY NEW EXTREMITY NUMBNESS OR WEAKNESS? NO . CARDIOLOGY: DO YOU HAVE A PACEMAKER OR DEFIBRILLATOR? NO . RESPIRATORY: HAVE YOU BEEN SICK IN THE PAST WEEK? NO . FEVER NO . FLU LIKE SYMPTOMS? NO . COUGH NO . INTEGUMENTARY: DO YOU HAVE ANY RASHES OR OPEN SORES? NO . ALLERGIC/IMMUNO: ARE YOU ALLERGIC TO SHELLFISH OR IV DYE? NO . ANY NEW ALLERGIES? NO . PSYCHIATRIC: DO YOU HAVE THOUGHTS OF HURTING YOURSELF OR SOMEONE ELSE? NO . ARE YOU ABUSED, NEGLECTED, OR IN AN UNSAFE ENVIRONMENT? NO . ENDOCRINOLOGY: ARE YOU DIABETIC? NO . OTHER: DO YOU NEED ANY PRESCRIPTIONS? YES . IF YES, PLEASE LIST: ____ . ANY NEW PROBLEMS WITH YOUR MEDICATIONS? NO . WHEN DID YOU LAST EAT? ____ . WHEN DID YOU LAST DRINK? ____ . WHAT DID YOU LAST DRINK? ____ . NAME OF PERSON DRIVING YOU HOME? ____ . DO YOU HAVE ANY OTHER QUESTIONS OR CONCERNS NO . VITAL SIGNS WT 215 LBS, HT 66 IN, BMI 34.70 INDEX, BP 121/67 MM HG, HR 73 /MIN, RR 16 /MIN, TEMP 97.2 F, OXYGEN SAT % 97%, SAFE IN ENV? (Y/N) Y, NA INITIALS SC 10:51, REVIEWED BY: ARTHUR. EXAMINATION GENERAL EXAMINATION: PATIENT IS ALERT O X 3 AND COOPERATIVE. LUNGS CLEAR, TO AUSCULTATION. HEART: NO MURMURS OR GALLOPS; FACIAL CRANIAL NERVES ARE GROSSLY NORMAL. GOOD SYMMETRY OF FACIAL MUSCLE MOVEMENT. NORMAL VISUAL ROSE. TENDERNESS OVER PARASPINAL MUSCLE GROUP OF THE NECK. INCREASING PAIN WITH EXTENSION AND LATERAL ROTATION OF THE NECK. MRI OF THE CERVICAL SPINE DONE ON 02/15/17 SHOWS FACET ARTHROPATHY CHANGES. ASSESSMENTS SPONDYLOSIS OF CERVICAL REGION WITHOUT MYELOPATHY OR RADICULOPATHY - M47.812 (PRIMARY) FACET ARTHROPATHY, CERVICAL - M47.812 TREATMENT SPONDYLOSIS OF CERVICAL REGION WITHOUT MYELOPATHY OR RADICULOPATHY CLINICAL NOTES: WE DISCUSSED SEVERAL ISSUES WITH MRS. CONNER'S PAIN MANAGEMENT CASE. DUE TO THE INCREASED PAIN, I WOULD LIKE TO MOVE FORWARD WITH A CERVICAL THERAPEUTIC FACET BLOCK WITH IV SEDATION AT THIS TIME. PATIENT WOULD LIKE TO MOVE FORWARD WITH IV SEDATION DUE TO DISCOMFORT, PAIN AND ANXIETY ASSOCIATED WITH THE PROCEDURE. WE DISCUSSED THE BENEFITS, RISKS, AND ALTERNATIVES OF THE INJECTION AND THE PATIENT WOULD LIKE TO PROCEED. THE PATIENT WILL FOLLOW UP WITH 2-3 WEEKS AFTER THE PROCEDURE. INSTRUCTIONS WERE GIVEN, QUESTIONS WERE ANSWERED, PATIENT REPORTS UNDERSTANDING AND AGREES WITH THE PLAN. I, ROMELIA LINCLON, DOCUMENTED THE ABOVE INFORMATION ACTING A SCRIBE FOR DR. CHIANG. I HAVE REVIEWED THE ABOVE DOCUMENT, WRITTEN BY ROMELIA LINCOLN SCRIBLaura AND I VERIFY THAT IT IS ACCURATE. PROCEDURE CODES FA211 ESTABILISHED PATIENT [facility] FACILITY CHARGE G8427 CURRENT MEDS W/DOSAGES DOCUMENTED G8730 PAIN ASSESS POS TOOL F/U PLAN DOC DISPOSITION & COMMUNICATION FOLLOW UP 3 WEEKS ELECTRONICALLY SIGNED BY LORENZO CHIANG MD, MD ON 02/28/2018 AT 04:35 PM EST DISCLAIMER : THIS IS A VISIT SUMMARY EXTRACTED FROM THE [employer] CHART. IT IS NOT A COPY OF THE [employer] PROGRESS NOTE. MTDD
== END ==
LOC: M PAIN 11:00
PROVIDERS: ATTEND Anesthesiology
DX: M47.812 Spondylosis without myelopathy or radiculopathy, cervical region (principal); F31.9 Bipolar disorder, unspecified; J45.909 Unspecified asthma, uncomplicated; Z86.718 Personal history of other venous thrombosis and embolism; Z98.84 Bariatric surgery status; Z98.1 Arthrodesis status; Z79.01 Long term (current) use of anticoagulants; Z79.891 Long term (current) use of opiate analgesic; Z79.899 Other long term (current) drug therapy; Z88.0 Allergy status to penicillin; Z88.1 Allergy status to other antibiotic agents; Z91.018 Allergy to other foods; Z91.040 Latex allergy status; Z88.8 Allergy status to other drugs, medicaments and biological substances

== ENCOUNTER 2018-03-22 14:43 | Outpatient (CLI) | payer MEDICAID, MEDICARE, OTHER ==
[~2018-03-22] VITALS: Ht 170.2 cm; Wt 95.5 kg
[~2018-03-22 14:43] MED LIST changes: -ALL10TAB27 PO; +ALL10TAB28 PO; +SODIUM CHLORIDE 0.9% INJ 10 ML SYR IV SCH
[2018-03-22 14:50] VITALS: BP 133/72
[2018-03-22] MEDS ORDERED: ALTEPLASE 2 MG/2 ML VIAL (J2997 PER 1MG) XX ONE (15:00)
== END 2018-03-22 14:50 | disposition home or self-care (01) ==
LOC: M INFU 14:43
PROVIDERS: ATTEND Internal Medicine
DX: T82.514A Breakdown (mechanical) of infusion catheter, initial encounter (principal)
CPT/HCPCS: 96523; J2997

== ENCOUNTER 2018-04-21 12:34 | Emergency (ER) | payer MEDICARE, MEDICAID ==
[~2018-04-21] VITALS: Ht 170.2 cm; Wt 104.5 kg
[~2018-04-21 12:34] MED LIST changes: -SODIUM CHLORIDE 0.9% INJ 10 ML SYR IV SCH
[2018-04-21] MEDS ORDERED: XARE10TA PO (13:08)
[2018-04-21] MEDS ORDERED: ROBA500T PO (13:08)
[2018-04-21 13:36] LABS: BASO # 0.1 10^3/uL (0.0-0.2); BASO % 0.9 % (0.0-1.0); EOS # 0.2 10^3/uL (0.0-0.50); EOS % 2.9 % (0.0-3.0); HEMATOCRIT 48.4 % (36.0-47.0); HEMOGLOBIN 15.9 g/dl (12.0-15.5); LYMPH # 1.4 10^3/uL (1.5-4.5); LYMPH % 21.9 % (24.0-44.0); MEAN CORPUSCULAR HEMOGLOBIN 30.9 pg (27.0-33.0); MEAN CORPUSCULAR HGB CONC 32.9 g/dl (32.0-36.5); MEAN CORPUSCULAR VOLUME 94.2 fl (80.0-96.0); MONO # 0.3 10^3/uL (0.0-0.8); MONO % 4.8 % (0.0-5.0); NEUTROPHILS # 4.5 10^3/uL (1.8-7.7); NEUTROPHILS % 68.9 % (36.0-66.0); PLATELET COUNT, AUTOMATED 203 10^3/uL (150-450); RED BLOOD COUNT 5.14 10^6/uL (4.00-5.40); WHITE BLOOD COUNT 6.5 10^3/uL (4.0-10.0)
[2018-04-21] MEDS ORDERED: PERCOCET 5MG/325MG TAB PO ONE (13:45)
[2018-04-21 13:52] LABS: INR 0.94; PARTIAL THROMBOPLASTIN TIME 34.9 SECONDS (25.4-37.6); PROTHROMBIN TIME 12.7 SECONDS (12.1-14.4)
[2018-04-21 14:04] LABS: ALBUMIN 3.9 GM/DL (3.2-5.2); ALT/SGPT 29 U/L (12-78); BILIRUBIN,DIRECT < 0.1 MG/DL (0.0-0.2); BILIRUBIN,TOTAL 0.4 MG/DL (0.2-1.0); BLOOD UREA NITROGEN 8 MG/DL (7-18); C REACTIVE PROTEIN QUANTITATIV 0.43 MG/DL (0.00-0.30); CARBON DIOXIDE LEVEL 26 MEQ/L (21-32); CHLORIDE LEVEL 112 MEQ/L (98-107); CREATININE FOR GFR 0.91 MG/DL (0.55-1.30); ERYTHROCYTE SEDIMENTATION RATE 12 mm/hr (0-30); GLOMERULAR FILTRATION RATE > 60.0 (>51); GLUCOSE, FASTING 93 MG/DL (70-100); POTASSIUM SERUM 3.7 MEQ/L (3.5-5.1); SODIUM LEVEL 144 MEQ/L (136-145); TOTAL PROTEIN 7.8 GM/DL (6.4-8.2)
[2018-04-21] MEDS ORDERED: ISOVUE-370 76% 100ML VIAL (Q9967) As Ordered ONE (14:43)
--- NOTE | 2018-04-21 16:47 | REP ---
CT ANGIOGRAM OF THE RIGHT LOWER EXTREMITY: 04/21/2018. CLINICAL HISTORY: Right foot pain, decreased sensation of pulses. Cool to touch. Recent Achilles surgery. Question also of compartment syndrome. TECHNIQUE: The patient received a bolus 100 ml Isovue 370 scanning from the iliac crests to the foot for evaluation of the right lower extremity vasculature. Axial soft tissue windows with coronal and sagittal reconstructions and a 3-D MIP coronal reconstructions. The curved reformat exam through the pelvis, thigh and proximal calf provided. 3-D vascular renderings were rotated about the longitudinal axis of the vessels also provided. FINDINGS: NONVASCULAR FINDINGS: The intrapelvic structures, musculature about the right hip and buttock unremarkable. The bony femur from hip to condyles was unremarkable. Right amira pelvis ischium suggest pubis and sacrum with small portions of the left pelvis also unremarkable. The tibia show no focal lesion. There is some degenerative changes at the ankle. Subtalar joints intact. Tarsal bones. Metatarsals show some degenerative changes. The anterior posterior compartment muscles of the thigh and calf are preserved. I cannot confirm any definite compartment syndrome or significant intramuscular edema. No hematoma noted. There is some subcutaneous edema about the foot, ankle and lower calf. From mid calf proximal the edema is minimal. VASCULAR FINDINGS: The bilateral common iliac arteries of the bilateral internal iliac arteries from the bifurcation and entire external iliac artery on the right and a small portion visualized on the left were normal. Common femoral artery and superficial femoral artery from the groin through the thigh are unremarkable without stenosis. Mild stenosis takeoff of the profunda femoris. The popliteal artery showed no stenosis. There is excellent two-vessel runoff to the ankle with the anterior and posterior tibial arteries. The peritoneal artery is seen only to the junction of the middle and distal one third of the calf. The other two vessels show excellent opacification to the ankle. Achilles tendon appears grossly intact without evidence of a tear. IMPRESSION: 1. There is good runoff from the right common iliac artery through the femoral artery in the thigh to the popliteal artery. No stenosis or aneurysm to the popliteal artery. 2. Runoff from the calf to the ankle was excellent through the posterior and anterior tibial arteries. The peroneal artery only extends to the lower one third of the calf on this study. There is no stenosis and excellent flow and visualization maintained in the calf to the ankle for those two vessels. Technical quality of the exam is very satisfactory. 3. Soft tissue swelling around the foot, ankle and lower calf subcutaneous edema. Achilles tendon intact. I do not see evidence of edema in the anterior posterior compartment muscles of the calf that would suggest compartment syndrome. There is no intramuscular hematoma. Fat planes within the muscle layers are preserved. 4. There are some degenerative changes foot and ankle. Radiograph would be a better way to evaluate that. Electronically Signed by Timo Jolley MD 04/21/2018 07:55 P
[2018-04-21 17:17] LABS: URIC ACID 4.1 MG/DL (2.6-6.0)
[2018-04-21 18:30] VITALS: BP 112/61
== END 2018-04-21 18:35 | disposition home or self-care (01) ==
LOC: M ED 12:34
DX: M25.571 Pain in right ankle and joints of right foot (principal); M79.89 Other specified soft tissue disorders; Z98.890 Other specified postprocedural states; J45.909 Unspecified asthma, uncomplicated; M54.9 Dorsalgia, unspecified; G47.30 Sleep apnea, unspecified; E03.9 Hypothyroidism, unspecified; Z98.84 Bariatric surgery status; Z91.018 Allergy to other foods; Z88.1 Allergy status to other antibiotic agents; Z88.8 Allergy status to other drugs, medicaments and biological substances; Z88.0 Allergy status to penicillin; Z79.899 Other long term (current) drug therapy; Z79.01 Long term (current) use of anticoagulants
CPT/HCPCS: 73706; 80048; 80076; 84550; 85025; 85610; 85652; 85730; 86140; 93041; 94760; 99285; Q9967

== ENCOUNTER 2018-05-09 16:17 | Outpatient (CLI) | payer MEDICARE, MEDICAID ==
[~2018-05-09] VITALS: Ht 165.1 cm; Wt 104.5 kg
[2018-05-09] MEDS: SODIUM CHLORIDE 0.9% INJ 10 ML SYR IV SCH ×3 (09:00→16:35)
[~2018-05-09 16:17] MED LIST changes: +ROBA500T PO; +XARE10TA PO
[2018-05-09 16:20] VITALS: BP 111/59
== END 2018-05-09 16:40 | disposition home or self-care (01) ==
LOC: M INFU 16:17
PROVIDERS: ATTEND Internal Medicine
DX: F31.30 Bipolar disorder, current episode depressed, mild or moderate severity, unspecified (principal)

== ENCOUNTER 2018-06-06 07:44 | Outpatient (CLI) | payer MEDICARE, MEDICAID ==
[~2018-06-06] VITALS: Ht 165.1 cm; Wt 104.5 kg
[~2018-06-06 07:44] MED LIST changes: -/PANT40TA; -/PREG100CA PO; -/PREG50CA PO; +LYRI100C PO; +LYRI50CA PO; +OXYC1TAB23 PO; -PERCOCET PO; +PROT1TAB2
[2018-06-06 07:56] VITALS: BP 128/70
[2018-06-06] MEDS ORDERED: SODIUM CHLORIDE 0.9% INJ 10 ML SYR IV SCH (09:00)
== END 2018-06-06 08:05 | disposition home or self-care (01) ==
LOC: M INFU 07:44
PROVIDERS: ATTEND Internal Medicine
DX: F31.30 Bipolar disorder, current episode depressed, mild or moderate severity, unspecified (principal); Z88.0 Allergy status to penicillin; Z88.1 Allergy status to other antibiotic agents; Z88.8 Allergy status to other drugs, medicaments and biological substances; Z91.018 Allergy to other foods

== ENCOUNTER 2018-07-04 07:48 | Outpatient (CLI) | payer MEDICARE, MEDICAID ==
[~2018-07-04] VITALS: Ht 162.6 cm; Wt 104.5 kg
[2018-07-04 07:50] VITALS: BP 116/58
[2018-07-04] MEDS ORDERED: SODIUM CHLORIDE 0.9% INJ 10 ML SYR IV SCH (09:00)
== END 2018-07-04 08:15 | disposition home or self-care (01) ==
LOC: M INFU 07:48
PROVIDERS: ATTEND Internal Medicine
DX: F31.30 Bipolar disorder, current episode depressed, mild or moderate severity, unspecified (principal)

== ENCOUNTER 2018-08-30 06:37 | Outpatient (CLI) | payer MEDICARE, MEDICAID ==
[~2018-08-30] VITALS: Ht 170.2 cm; Wt 104.5 kg
[~2018-08-30 06:37] MED LIST changes: +CYAN100049 PO; +MM S100C PO; -STOO100C PO; -VITA10002 PO
[2018-08-30 06:48] VITALS: BP 129/78
[2018-08-30] MEDS ORDERED: SODIUM CHLORIDE 0.9% INJ 10 ML SYR IV SCH (09:00)
== END 2018-08-30 07:00 | disposition home or self-care (01) ==
LOC: M INFU 06:37
PROVIDERS: ATTEND Internal Medicine
DX: F31.30 Bipolar disorder, current episode depressed, mild or moderate severity, unspecified (principal); Z88.0 Allergy status to penicillin; Z88.1 Allergy status to other antibiotic agents; Z88.5 Allergy status to narcotic agent; Z88.8 Allergy status to other drugs, medicaments and biological substances

== ENCOUNTER 2018-10-03 08:44 | Outpatient (CLI) | payer MEDICARE, MEDICAID ==
[~2018-10-03] VITALS: Ht 170.2 cm; Wt 104.5 kg
[2018-10-03 08:45] VITALS: BP 123/71
[2018-10-03] MEDS ORDERED: SODIUM CHLORIDE 0.9% INJ 10 ML SYR IV SCH (09:00)
== END 2018-10-03 09:05 ==
LOC: M INFU 08:44
PROVIDERS: ATTEND Internal Medicine
DX: F31.30 Bipolar disorder, current episode depressed, mild or moderate severity, unspecified (principal); Z88.0 Allergy status to penicillin; Z88.1 Allergy status to other antibiotic agents; Z88.8 Allergy status to other drugs, medicaments and biological substances

== ENCOUNTER 2018-10-31 09:04 | Outpatient (CLI) | payer MEDICARE, MEDICAID ==
[~2018-10-31] VITALS: Ht 170.2 cm; Wt 104.5 kg
[~2018-10-31 09:04] MED LIST changes: -MORP-38 PO; +MORP-69 PO; +SODIUM CHLORIDE 0.9% INJ 10 ML SYR IV SCH
[2018-10-31 09:15] VITALS: BP 130/77
[2018-10-31] MEDS ORDERED: SODIUM CHLORIDE 0.9% INJ 10 ML SYR IV PRN (09:30)
[2018-11-01] MEDS ORDERED: SODIUM CHLORIDE 0.9% INJ 10 ML SYR IV SCH (09:00)
== END 2018-10-31 09:45 | disposition home or self-care (01) ==
LOC: M INFU 09:04
PROVIDERS: ATTEND Family Medicine
DX: F31.30 Bipolar disorder, current episode depressed, mild or moderate severity, unspecified (principal); Z88.1 Allergy status to other antibiotic agents; Z88.8 Allergy status to other drugs, medicaments and biological substances; Z88.0 Allergy status to penicillin

== ENCOUNTER 2018-11-28 08:46 | Outpatient (CLI) | payer MEDICARE, MEDICAID ==
[~2018-11-28] VITALS: Ht 170.2 cm; Wt 104.5 kg
[~2018-11-28 08:46] MED LIST changes: -ALL10TAB28 PO; +ALL10TAB29 PO; -SODIUM CHLORIDE 0.9% INJ 10 ML SYR IV SCH
[2018-11-28 08:50] VITALS: BP 120/85
[2018-11-28] MEDS ORDERED: SODIUM CHLORIDE 0.9% INJ 10 ML SYR IV SCH (09:00)
== END 2018-11-28 18:58 | disposition home or self-care (01) ==
LOC: M INFU 08:46
PROVIDERS: ATTEND Family Medicine
DX: F31.30 Bipolar disorder, current episode depressed, mild or moderate severity, unspecified (principal)

== ENCOUNTER → 2018-11-30 | Outpatient (CLI) | payer MEDICARE, MEDICAID ==
[~2018-11-30] MED LIST changes: +OMEP40CA97 PO
--- NOTE | 2018-11-30 11:30 | REPMRS ---
Patient History The patient states she had a clinical breast exam in 11/2018. Patient is postmenopausal. Family history of breast cancer at age 50 or over in maternal aunt, colorectal cancer at age 50 or over in maternal uncle, endometrial cancer at age 35 in mother, endometrial cancer under age 50 in maternal grandmother. No Hormone Replacement Therapy 3D TOMOSYNTHESIS WAS PERFORMED. The [facility] lifetime risk for breast cancer is 10.2%. Digital Woman Screen Mammo: November 30, 2018 - Exam #: [id number] Bilateral CC and MLO view(s) were taken. Technologist: Tavia Mancia Technologist Prior study comparison: June 28, 2016, digital woman screen mammo performed at [facility] [employer]. January 09, 2015, digital woman screen mammo performed at [facility]. FINDINGS: There are scattered fibroglandular densities. There has been no change in the appearance of the mammogram from the prior studies. There is a mild amount of residual fibroglandular tissue which is fairly symmetric. There is no interval development of dominant mass, architectural distortion, or clustered microcalcification suggestive of malignancy. Assessment: BI-RADS/ACR category 1 mammogram. Negative Mammogram. Recommendation Routine screening mammogram in 1 year (for women over age 40). This mammogram was interpreted with the aid of an FDA-approved computer-aided dectection system. Electronically Signed By: Bj Orellana MD 11/30/18 1129
== END ==
LOC: M WHC 09:03
PROVIDERS: ATTEND Nurse Practitioner Women's Health
DX: Z01.419 Encounter for gynecological examination (general) (routine) without abnormal findings (principal); Z12.31 Encounter for screening mammogram for malignant neoplasm of breast; Z90.710 Acquired absence of both cervix and uterus; Z78.0 Asymptomatic menopausal state; Z80.49 Family history of malignant neoplasm of other genital organs
CPT/HCPCS: 77063; 77067; G0101

== ENCOUNTER 2018-12-26 09:29 | Outpatient (CLI) | payer MEDICARE, MEDICAID ==
[~2018-12-26] VITALS: Ht 170.2 cm; Wt 104.5 kg
[2018-12-26 09:35] VITALS: BP 114/80
[2018-12-26] MEDS ORDERED: SODIUM CHLORIDE 0.9% INJ 10 ML SYR IV ONE (10:00)
== END 2018-12-26 10:00 | disposition home or self-care (01) ==
LOC: M INFU 09:29
PROVIDERS: ATTEND Family Medicine
DX: F31.30 Bipolar disorder, current episode depressed, mild or moderate severity, unspecified (principal); Z88.1 Allergy status to other antibiotic agents; Z88.8 Allergy status to other drugs, medicaments and biological substances; Z91.040 Latex allergy status

== ENCOUNTER 2019-07-27 15:06 | Outpatient (CLI) | payer MEDICARE, MEDICAID ==
[~2019-07-27] VITALS: Ht 170.2 cm; Wt 104.5 kg
[~2019-07-27 15:06] MED LIST changes: +CYCL-707 PO; -CYCL10TA PO; -LORA1TAB12 PO; +LORA1TAB4 PO; +SODIUM CHLORIDE 0.9% INJ 10 ML SYR IV SCH
[2019-07-27 15:10] VITALS: BP 127/84
== END 2019-07-27 15:25 | disposition home or self-care (01) ==
LOC: M INFU 15:06
PROVIDERS: ATTEND Internal Medicine
DX: F31.30 Bipolar disorder, current episode depressed, mild or moderate severity, unspecified (principal)
CPT/HCPCS: 96523; J1642

== ENCOUNTER 2019-08-24 07:54 | Outpatient (CLI) | payer MEDICARE, MEDICAID ==
[~2019-08-24] VITALS: Ht 170.2 cm; Wt 104.5 kg
[~2019-08-24 07:54] MED LIST changes: -SODIUM CHLORIDE 0.9% INJ 10 ML SYR IV SCH
[2019-08-24 08:00] VITALS: BP 130/70
[2019-08-24] MEDS ORDERED: SODIUM CHLORIDE 0.9% INJ 10 ML SYR IV SCH (09:00)
== END 2019-08-24 08:15 | disposition home or self-care (01) ==
LOC: M INFU 07:54
PROVIDERS: ATTEND Internal Medicine
DX: F31.30 Bipolar disorder, current episode depressed, mild or moderate severity, unspecified (principal)
CPT/HCPCS: 96523; J1642

== ENCOUNTER 2019-10-19 07:54 | Outpatient (CLI) | payer MEDICARE, MEDICAID ==
[~2019-10-19] VITALS: Ht 200.7 cm; Wt 104.5 kg
[~2019-10-19 07:54] MED LIST changes: -ALL10TAB29 PO; +CETI-24 PO
[2019-10-19 08:00] VITALS: BP 116/70
[2019-10-19] MEDS ORDERED: [UNRECOGNIZED DRUG - OTHER] (08:26)
[2019-10-19] MEDS ORDERED: SODIUM CHLORIDE 0.9% INJ 10 ML SYR IV SCH (09:00)
== END 2019-10-19 08:15 | disposition home or self-care (01) ==
LOC: M INFU 07:54
PROVIDERS: ATTEND Internal Medicine
DX: F31.30 Bipolar disorder, current episode depressed, mild or moderate severity, unspecified (principal)

== ENCOUNTER 2019-11-27 08:05 | Outpatient (CLI) | payer MEDICARE, MEDICAID ==
[~2019-11-27] VITALS: Ht 170.2 cm; Wt 104.5 kg
[~2019-11-27 08:05] MED LIST changes: +[UNRECOGNIZED DRUG - OTHER]
[2019-11-27 08:17] VITALS: BP 131/97
[2019-11-27 08:35] VITALS: BP 118/67
[2019-11-27] MEDS ORDERED: RAME8TAB2 (08:38)
[2019-11-27] MEDS ORDERED: SODIUM CHLORIDE 0.9% INJ 10 ML SYR IV SCH (09:00)
== END 2019-11-27 08:35 | disposition home or self-care (01) ==
LOC: M INFU 08:05
PROVIDERS: ATTEND Internal Medicine
DX: F31.30 Bipolar disorder, current episode depressed, mild or moderate severity, unspecified (principal)
CPT/HCPCS: 96523; J1642

== ENCOUNTER → 2019-12-21 | Outpatient (REF) | payer MEDICARE, MEDICAID ==
[~2019-12-21] MED LIST changes: +RAME8TAB2
== END ==
LOC: M SFHCWAGY 13:26
PROVIDERS: ATTEND Nurse Practitioner Women's Health
DX: Z12.4 Encounter for screening for malignant neoplasm of cervix (principal); Z87.42 Personal history of other diseases of the female genital tract; N95.2 Postmenopausal atrophic vaginitis; R87.810 Cervical high risk human papillomavirus (HPV) DNA test positive
CPT/HCPCS: 87624; G0123

== ENCOUNTER → 2019-12-21 | Outpatient (CLI) | payer MEDICARE, MEDICAID ==
--- NOTE | 2019-12-21 14:43 | REPMRS ---
Patient History The patient states she had a clinical breast exam in November 2019. Family history of breast cancer at age 50 or over in maternal aunt, colorectal cancer at age 50 or over in maternal uncle, endometrial cancer at age 35 in mother, endometrial cancer under age 50 in maternal grandmother. No Hormone Replacement Therapy 3D TOMOSYNTHESIS WAS PERFORMED. The [facility] lifetime risk for breast cancer is 10.0%. Volpara breast density b. Digital Woman Screen Mammo: December 21, 2019 - Exam #: [id number] Bilateral CC and MLO view(s) were taken. Technologist: Paula Shin, RT Prior study comparison: November 30, 2018, bilateral digital woman screen mammo performed at [facility]. June 28, 2016, digital woman screen mammo performed at [facility]. FINDINGS: There are scattered fibroglandular densities. There has been no change in the appearance of the mammogram from the prior studies. There is a mild amount of residual fibroglandular tissue which is fairly symmetric. There is no interval development of dominant mass, architectural distortion, or clustered microcalcification suggestive of malignancy. Assessment: BI-RADS/ACR category 1 mammogram. Negative Mammogram. Recommendation Routine screening mammogram in 1 year (for women over age 40). This mammogram was interpreted with the aid of an FDA-approved computer-aided dectection system. Electronically Signed By: Bj Orellana MD 12/21/19 [id number]
== END ==
LOC: M WHC 09:58
PROVIDERS: ATTEND Nurse Practitioner Women's Health
DX: Z01.419 Encounter for gynecological examination (general) (routine) without abnormal findings (principal); Z12.31 Encounter for screening mammogram for malignant neoplasm of breast; Z80.49 Family history of malignant neoplasm of other genital organs
CPT/HCPCS: 77063; 77067; 87624; G0101; G0123

== ENCOUNTER 2019-12-25 07:47 | Outpatient (CLI) | payer MEDICARE, MEDICAID ==
[~2019-12-25] VITALS: Ht 170.2 cm; Wt 104.5 kg
[2019-12-25 08:00] VITALS: BP 128/84
[2019-12-25] MEDS ORDERED: SODIUM CHLORIDE 0.9% INJ 10 ML SYR IV SCH (09:00)
== END 2019-12-25 08:07 | disposition home or self-care (01) ==
LOC: M INFU 07:47
PROVIDERS: ATTEND Internal Medicine
DX: F31.30 Bipolar disorder, current episode depressed, mild or moderate severity, unspecified (principal)
CPT/HCPCS: 96523; J1642

== ENCOUNTER 2020-01-22 09:27 | Outpatient (CLI) | payer MEDICARE, MEDICAID ==
[~2020-01-22] VITALS: Ht 167.6 cm; Wt 83.1 kg
[~2020-01-22 09:27] MED LIST changes: +SODIUM CHLORIDE 0.9% INJ 10 ML SYR IV PRN; +SODIUM CHLORIDE 0.9% INJ 10 ML SYR IV SCH
[2020-01-22 09:47] VITALS: BP 128/64
== END 2020-01-22 09:50 | disposition home or self-care (01) ==
LOC: M INFU 09:27
PROVIDERS: ATTEND Internal Medicine
DX: F31.30 Bipolar disorder, current episode depressed, mild or moderate severity, unspecified (principal)

== ENCOUNTER 2020-02-19 08:02 | Outpatient (CLI) | payer MEDICARE, MEDICAID ==
[~2020-02-19] VITALS: Ht 167.6 cm; Wt 83.1 kg
[~2020-02-19 08:02] MED LIST changes: +MIRT-62 PO; -REME15TA PO; -SODIUM CHLORIDE 0.9% INJ 10 ML SYR IV PRN; -SODIUM CHLORIDE 0.9% INJ 10 ML SYR IV SCH
[2020-02-19 08:30] VITALS: BP 125/77
[2020-02-19] MEDS ORDERED: SODIUM CHLORIDE 0.9% INJ 10 ML SYR IV SCH (09:00)
== END 2020-02-19 08:30 | disposition home or self-care (01) ==
LOC: M INFU 08:02
PROVIDERS: ATTEND Internal Medicine
DX: F31.30 Bipolar disorder, current episode depressed, mild or moderate severity, unspecified (principal)
CPT/HCPCS: 96523; J1642

== ENCOUNTER 2020-03-18 07:07 | Outpatient (CLI) | payer MEDICARE, MEDICAID ==
[~2020-03-18] VITALS: Ht 167.6 cm; Wt 83.0 kg
[~2020-03-18 07:07] MED LIST changes: -QUET1TAB10 PO; +QUET300T2 PO
[2020-03-18 07:20] VITALS: BP 113/72
[2020-03-18] MEDS ORDERED: BELS1TAB3 PO (07:29)
[2020-03-18] MEDS ORDERED: SODIUM CHLORIDE 0.9% INJ 10 ML SYR IV SCH (09:00)
== END 2020-03-18 07:30 | disposition home or self-care (01) ==
LOC: M INFU 07:07
PROVIDERS: ATTEND Internal Medicine
DX: F31.30 Bipolar disorder, current episode depressed, mild or moderate severity, unspecified (principal); Z88.0 Allergy status to penicillin; Z88.1 Allergy status to other antibiotic agents
CPT/HCPCS: 96523; J1642

== ENCOUNTER 2020-04-22 07:25 | Outpatient (CLI) | payer MEDICARE, MEDICAID ==
[~2020-04-22] VITALS: Ht 167.6 cm; Wt 83.1 kg
[~2020-04-22 07:25] MED LIST changes: +BELS1TAB3 PO; +SODIUM CHLORIDE 0.9% INJ 10 ML SYR IV SCH
[2020-04-22 07:36] VITALS: BP 116/76
[2020-04-22] MEDS ORDERED: SODIUM CHLORIDE 0.9% INJ 10 ML SYR IV SCH (09:00)
== END 2020-04-22 07:40 | disposition home or self-care (01) ==
LOC: M INFU 07:25
PROVIDERS: ATTEND Internal Medicine
DX: F31.30 Bipolar disorder, current episode depressed, mild or moderate severity, unspecified (principal)
CPT/HCPCS: 96523; J1642

== ENCOUNTER 2020-06-18 07:22 | Outpatient (CLI) | payer MEDICARE, MEDICAID ==
[~2020-06-18] VITALS: Ht 167.6 cm; Wt 83.1 kg
[~2020-06-18 07:22] MED LIST changes: -SODIUM CHLORIDE 0.9% INJ 10 ML SYR IV SCH
[2020-06-18] MEDS ORDERED: SODIUM CHLORIDE 0.9% INJ 10 ML SYR IV PRN (07:30)
[2020-06-18 07:39] VITALS: BP 118/69
[2020-06-18] MEDS ORDERED: SODIUM CHLORIDE 0.9% INJ 10 ML SYR IV SCH (09:00)
== END 2020-06-18 07:40 | disposition home or self-care (01) ==
LOC: M INFU 07:22
PROVIDERS: ATTEND Internal Medicine
DX: F31.30 Bipolar disorder, current episode depressed, mild or moderate severity, unspecified (principal)
CPT/HCPCS: 96523; J1642

== ENCOUNTER 2020-07-16 07:10 | Outpatient (CLI) | payer MEDICARE, MEDICAID ==
[~2020-07-16] VITALS: Ht 167.6 cm; Wt 83.1 kg
[2020-07-16 07:15] VITALS: BP 150/83
[2020-07-16] MEDS ORDERED: SODIUM CHLORIDE 0.9% INJ 10 ML SYR IV SCH (09:00)
== END 2020-07-16 07:30 | disposition home or self-care (01) ==
LOC: M INFU 07:10
PROVIDERS: ATTEND Internal Medicine
DX: F31.30 Bipolar disorder, current episode depressed, mild or moderate severity, unspecified (principal); Z88.0 Allergy status to penicillin; Z88.1 Allergy status to other antibiotic agents
CPT/HCPCS: 96523; J1642

== ENCOUNTER 2020-09-10 07:17 | Outpatient (CLI) | payer MEDICARE, MEDICAID ==
[~2020-09-10] VITALS: Ht 167.6 cm; Wt 83.0 kg
[~2020-09-10 07:17] MED LIST changes: +OMEP40CA4 PO; -OMEP40CA97 PO
[2020-09-10 07:25] VITALS: BP 143/91
[2020-09-10] MEDS ORDERED: SODIUM CHLORIDE 0.9% INJ 10 ML SYR IV SCH (09:00)
== END 2020-09-10 07:45 | disposition home or self-care (01) ==
LOC: M INFU 07:17
PROVIDERS: ATTEND Internal Medicine
DX: F31.30 Bipolar disorder, current episode depressed, mild or moderate severity, unspecified (principal); Z88.0 Allergy status to penicillin; Z88.1 Allergy status to other antibiotic agents
CPT/HCPCS: 96523; J1642

== ENCOUNTER 2020-10-16 14:07 | Outpatient (CLI) | payer MEDICARE, MEDICAID ==
[~2020-10-16] VITALS: Ht 167.6 cm; Wt 83.1 kg
[~2020-10-16 14:07] MED LIST changes: +SODIUM CHLORIDE 0.9% INJ 10 ML SYR IV SCH
[2020-10-16 14:10] VITALS: BP 146/75
== END 2020-10-16 14:35 | disposition home or self-care (01) ==
LOC: M INFU 14:07
PROVIDERS: ATTEND Internal Medicine
DX: F31.30 Bipolar disorder, current episode depressed, mild or moderate severity, unspecified (principal)
CPT/HCPCS: 96523; J1642

== ENCOUNTER 2020-11-05 07:26 | Outpatient (CLI) | payer MEDICARE, MEDICAID ==
[~2020-11-05] VITALS: Ht 167.6 cm; Wt 83.1 kg
[~2020-11-05 07:26] MED LIST changes: -SODIUM CHLORIDE 0.9% INJ 10 ML SYR IV SCH
[2020-11-05 07:30] VITALS: BP 115/72
[2020-11-05] MEDS ORDERED: SODIUM CHLORIDE 0.9% INJ 10 ML SYR IV ONE (07:30)
== END 2020-11-05 07:45 | disposition home or self-care (01) ==
LOC: M INFU 07:26
PROVIDERS: ATTEND Internal Medicine
DX: F31.30 Bipolar disorder, current episode depressed, mild or moderate severity, unspecified (principal); Z88.1 Allergy status to other antibiotic agents; Z88.0 Allergy status to penicillin
CPT/HCPCS: 96523; J1642

== ENCOUNTER 2020-12-24 07:23 | Outpatient (CLI) | payer MEDICARE, MEDICAID ==
[~2020-12-24] VITALS: Ht 167.6 cm; Wt 83.1 kg
[2020-12-24 07:25] VITALS: BP 150/83
[2020-12-24] MEDS: SODIUM CHLORIDE 0.9% INJ 10 ML SYR IV SCH ×2 (07:31→08:01)
== END 2020-12-24 07:45 | disposition home or self-care (01) ==
LOC: M INFU 07:23
PROVIDERS: ATTEND Internal Medicine
DX: F31.30 Bipolar disorder, current episode depressed, mild or moderate severity, unspecified (principal); Z88.0 Allergy status to penicillin; Z88.1 Allergy status to other antibiotic agents

== ENCOUNTER 2021-01-27 07:08 | Outpatient (CLI) | payer MEDICARE, MEDICAID ==
[~2021-01-27] VITALS: Ht 167.6 cm; Wt 83.1 kg
[~2021-01-27 07:08] MED LIST changes: +POTA-151 PO; -POTA20TA6 PO
[2021-01-27 07:15] VITALS: BP 121/75
[2021-01-27] MEDS ORDERED: SODIUM CHLORIDE 0.9% INJ 10 ML SYR IV SCH (09:00)
== END 2021-01-27 07:35 | disposition home or self-care (01) ==
LOC: M INFU 07:08
PROVIDERS: ATTEND Internal Medicine
DX: F31.30 Bipolar disorder, current episode depressed, mild or moderate severity, unspecified (principal)
CPT/HCPCS: 96523; J1642

== ENCOUNTER → 2021-02-04 | Outpatient (CLI) | payer MEDICARE, MEDICAID | LOC: M WHC 08:38 | PROVIDERS: ATTEND Nurse Practitioner Women's Health | DX: Z12.31 Encounter for screening mammogram for malignant neoplasm of breast (principal); Z12.72 Encounter for screening for malignant neoplasm of vagina; R92.1 Mammographic calcification found on diagnostic imaging of breast; N95.2 Postmenopausal atrophic vaginitis | CPT/HCPCS: 77063; 77067; 87624; G0123; G0463 ==

== ENCOUNTER → 2021-02-04 | Outpatient (REF) | payer MEDICARE, MEDICAID | LOC: M SFHCWAGY 13:24 | PROVIDERS: ATTEND Nurse Practitioner Women's Health | DX: Z12.72 Encounter for screening for malignant neoplasm of vagina (principal); N95.2 Postmenopausal atrophic vaginitis ==

== ENCOUNTER 2021-02-24 07:06 | Outpatient (CLI) | payer MEDICARE, MEDICAID ==
[~2021-02-24] VITALS: Ht 167.6 cm; Wt 83.1 kg
[2021-02-24 07:15] VITALS: BP 126/85
[2021-02-24] MEDS ORDERED: SODIUM CHLORIDE 0.9% INJ 10 ML SYR IV SCH (09:00)
== END 2021-02-24 07:35 | disposition home or self-care (01) ==
LOC: M INFU 07:06
PROVIDERS: ATTEND Internal Medicine
DX: F31.30 Bipolar disorder, current episode depressed, mild or moderate severity, unspecified (principal); Z88.0 Allergy status to penicillin; Z88.1 Allergy status to other antibiotic agents
CPT/HCPCS: 96523; J1642

== ENCOUNTER 2021-04-21 07:42 | Outpatient (CLI) | payer MEDICARE, MEDICAID ==
[~2021-04-21] VITALS: Ht 167.6 cm; Wt 83.1 kg
[~2021-04-21 07:42] MED LIST changes: +SODIUM CHLORIDE 0.9% INJ 10 ML SYR IV ONE
[2021-04-21 07:53] VITALS: BP 131/59
== END 2021-04-21 08:00 | disposition home or self-care (01) ==
LOC: M INFU 07:42
PROVIDERS: ATTEND Internal Medicine
DX: F31.30 Bipolar disorder, current episode depressed, mild or moderate severity, unspecified (principal); Z88.0 Allergy status to penicillin; Z88.1 Allergy status to other antibiotic agents
CPT/HCPCS: 96523; J1642

== ENCOUNTER 2021-05-06 08:12 | Outpatient (CLI) | payer MEDICARE, MEDICAID ==
[~2021-05-06] VITALS: Ht 167.6 cm; Wt 83.1 kg
[2021-05-06] MEDS ORDERED: SODIUM CHLORIDE 0.9% INJ 10 ML SYR IV SCH (09:00)
[2021-05-06 09:23] LABS: BASO # 0.1 10^3/uL (0.0-0.2); BASO % 1.2 % (0.0-1.0); EOS # 0.5 10^3/uL (0.0-0.5); EOS % 8.1 % (0.0-3.0); HEMATOCRIT 42.4 % (36.0-47.0); HEMOGLOBIN 13.9 g/dl (12.0-15.5); LYMPH # 1.6 10^3/uL (1.5-5.0); MEAN CORPUSCULAR HEMOGLOBIN 31.4 pg (27.0-33.0); MEAN CORPUSCULAR HGB CONC 32.8 g/dl (32.0-36.5); MEAN CORPUSCULAR VOLUME 95.9 fl (80.0-96.0); MONO # 0.3 10^3/uL (0.0-0.8); NEUTROPHILS # 3.6 10^3/uL (1.5-8.5); NEUTROPHILS % 59.4 % (36.0-66.0); PLATELET COUNT, AUTOMATED 214 10^3/uL (150-450); RED BLOOD COUNT 4.42 10^6/uL (4.00-5.40)
[2021-05-06 09:59] LABS: ALBUMIN 3.7 GM/DL (3.2-5.2); ALT/SGPT 27 U/L (12-78); BILIRUBIN,TOTAL 0.2 MG/DL (0.2-1.0); BLOOD UREA NITROGEN 10 MG/DL (7-18); CALCIUM LEVEL 8.8 MG/DL (8.5-10.1); CARBON DIOXIDE LEVEL 25 MEQ/L (21-32); CHLORIDE LEVEL 114 MEQ/L (98-107); CHOLESTEROL LEVEL 239 MG/DL (<200); CHOLESTEROL RISK RATIO 4.877 (<5); CREATININE FOR GFR 0.77 MG/DL (0.55-1.30); FREE T4 1.05 NG/DL (0.76-1.46); GLOMERULAR FILTRATION RATE > 60.0 (>51); GLUCOSE, FASTING 92 MG/DL (70-100); HDL CHOLESTEROL 49 MG/DL (>40); LDL CHOLESTEROL 151 MG/DL (<100); NON-HDL-C 190 MG/DL; POTASSIUM SERUM 4.4 MEQ/L (3.5-5.1); SODIUM LEVEL 142 MEQ/L (136-145); TOTAL PROTEIN 6.5 GM/DL (6.4-8.2); TRIGLYCERIDES LEVEL 193 MG/DL (<150)
== END 2021-05-06 09:10 | disposition home or self-care (01) ==
LOC: M INFU 08:12
PROVIDERS: ATTEND Internal Medicine
DX: F31.30 Bipolar disorder, current episode depressed, mild or moderate severity, unspecified (principal); Z88.0 Allergy status to penicillin; Z88.1 Allergy status to other antibiotic agents; Z88.8 Allergy status to other drugs, medicaments and biological substances

== ENCOUNTER → 2021-05-06 | Outpatient (CLI) | payer MEDICARE, MEDICAID ==
[~2021-05-06] MED LIST changes: -SODIUM CHLORIDE 0.9% INJ 10 ML SYR IV ONE
== END ==
LOC: M RAD 09:06
PROVIDERS: ATTEND Neurological Surgery
DX: Z01.812 Encounter for preprocedural laboratory examination (principal); F31.30 Bipolar disorder, current episode depressed, mild or moderate severity, unspecified; Z88.0 Allergy status to penicillin; Z88.1 Allergy status to other antibiotic agents; Z88.8 Allergy status to other drugs, medicaments and biological substances
CPT/HCPCS: 36415; 36591; 71046; 80053; 80061; 84439; 84443; 85025; 87086; J1642

== ENCOUNTER 2021-06-16 07:24 | Outpatient (CLI) | payer MEDICAID, MEDICARE ==
[~2021-06-16] VITALS: Ht 170.2 cm; Wt 83.1 kg
[2021-06-16 07:33] VITALS: BP 137/64
[2021-06-16] MEDS ORDERED: SODIUM CHLORIDE 0.9% INJ 10 ML SYR IV SCH (09:00)
== END 2021-06-16 07:45 | disposition home or self-care (01) ==
LOC: M INFU 07:24
PROVIDERS: ATTEND Internal Medicine
DX: F31.30 Bipolar disorder, current episode depressed, mild or moderate severity, unspecified (principal); Z88.0 Allergy status to penicillin; Z88.1 Allergy status to other antibiotic agents; Z88.8 Allergy status to other drugs, medicaments and biological substances; Z91.018 Allergy to other foods
CPT/HCPCS: 96523; J1642

== ENCOUNTER 2021-06-16 17:51 | Emergency (ER) | payer MEDICARE, MEDICAID ==
[~2021-06-16] VITALS: Ht 165.1 cm; Wt 75.0 kg
[2021-06-16] MEDS ORDERED: NS 1,000 ML IV ONE (23:00)
[2021-06-16] MEDS ORDERED: ONDANSETRON 4MG/2ML VIAL IV ONE (23:00)
[2021-06-16] MEDS ORDERED: MORPHINE 4 MG/ML 1ML VIAL/SYRINGE IV ONE (23:00)
[2021-06-16 23:21] LABS: BASO # 0.1 10^3/uL (0.0-0.2); BASO % 1.3 % (0.0-1.0); EOS # 0.4 10^3/uL (0.0-0.5); EOS % 5.7 % (0.0-3.0); HEMATOCRIT 44.1 % (36.0-47.0); HEMOGLOBIN 14.3 g/dl (12.0-15.5); LYMPH # 2.2 10^3/uL (1.5-5.0); LYMPH % 34.9 % (24.0-44.0); MEAN CORPUSCULAR HEMOGLOBIN 31.6 pg (27.0-33.0); MEAN CORPUSCULAR HGB CONC 32.4 g/dl (32.0-36.5); MEAN CORPUSCULAR VOLUME 97.6 fl (80.0-96.0); MONO # 0.3 10^3/uL (0.0-0.8); MONO % 5.5 % (2.0-8.0); NEUTROPHILS # 3.2 10^3/uL (1.5-8.5); NEUTROPHILS % 52.4 % (36.0-66.0); PLATELET COUNT, AUTOMATED 238 10^3/uL (150-450); RED BLOOD COUNT 4.52 10^6/uL (4.00-5.40); WHITE BLOOD COUNT 6.2 10^3/uL (4.0-10.0)
[2021-06-16 23:43] LABS: ERYTHROCYTE SEDIMENTATION RATE 6 mm/hr (0-30)
[2021-06-16 23:51] LABS: INR 1.03; PROTHROMBIN TIME 13.9 SECONDS (12.7-14.5)
[2021-06-16 23:52] LABS: PARTIAL THROMBOPLASTIN TIME 36.2 SECONDS (25.9-37.0)
[2021-06-16] MEDS ORDERED: ISOVUE-370 76% 100ML VIAL As Ordered ONE (23:55)
[2021-06-17] MEDS ORDERED: diazePAM 10MG/2ML SYRINGE (J3360 PER 5MG) IV ONE ×2 (01:20→02:30)
[2021-06-17 03:44] LABS: RSV AMPLIFICATION NEGATIVE (NEGATIVE)
[2021-06-17] MEDS ORDERED: dexameTHASONE 20MG/5ML VIAL (J1100 PER 1MG) IV ONE (04:10)
[2021-06-17 04:36] VITALS: BP 110/78
== END 2021-06-17 04:35 | disposition home or self-care (01) ==
LOC: M ED 17:51 → EDBD 17:51 → M ED 06-17 04:35
DX: T88.9XXA Complication of surgical and medical care, unspecified, initial encounter (principal); R51.9 Headache, unspecified; M54.12 Radiculopathy, cervical region; G89.29 Other chronic pain; M54.9 Dorsalgia, unspecified; G47.33 Obstructive sleep apnea (adult) (pediatric); M41.9 Scoliosis, unspecified; Z88.0 Allergy status to penicillin; Z88.1 Allergy status to other antibiotic agents; Z88.8 Allergy status to other drugs, medicaments and biological substances; Z79.899 Other long term (current) drug therapy
CPT/HCPCS: 72126; 80047; 83605; 85025; 85610; 85652; 85730; 86140; 87631; 96361; 96374; 96375; 96376; 99284; J1100; J2270; J2405; J3360; Q9967

== ENCOUNTER 2021-07-22 07:04 | Outpatient (CLI) | payer MEDICAID, MEDICARE ==
[2021-07-22 07:05] VITALS: BP 143/66
[2021-07-22] MEDS ORDERED: SODIUM CHLORIDE 0.9% INJ 10 ML SYR IV SCH (09:00)
== END 2021-07-22 07:25 | disposition home or self-care (01) ==
LOC: M INFU 07:04
PROVIDERS: ATTEND Internal Medicine
DX: F31.30 Bipolar disorder, current episode depressed, mild or moderate severity, unspecified (principal)
CPT/HCPCS: 96523; J1642

== ENCOUNTER 2021-08-19 07:20 | Outpatient (CLI) | payer MEDICAID, MEDICARE ==
[~2021-08-19] VITALS: Ht 167.6 cm; Wt 82.0 kg
[2021-08-19 07:20] VITALS: BP 140/84
[2021-08-19] MEDS ORDERED: SODIUM CHLORIDE 0.9% INJ 10 ML SYR IV SCH (09:00)
== END 2021-08-19 07:40 | disposition home or self-care (01) ==
LOC: M INFU 07:20
PROVIDERS: ATTEND Internal Medicine
DX: F31.30 Bipolar disorder, current episode depressed, mild or moderate severity, unspecified (principal)
CPT/HCPCS: 96523; J1642

== ENCOUNTER → 2021-09-15 | Outpatient (CLI) | payer MEDICARE ==
[~2021-09-15] MED LIST changes: +SODIUM CHLORIDE 0.9% INJ 10 ML SYR IV PRN; +SODIUM CHLORIDE 0.9% INJ 10 ML SYR IV SCH
== END ==
LOC: M INFU 07:40
PROVIDERS: ATTEND Internal Medicine
DX: F31.30 Bipolar disorder, current episode depressed, mild or moderate severity, unspecified (principal)

== ENCOUNTER → 2021-10-26 | Outpatient (CLI) | payer MEDICARE ==
[~2021-10-26] MED LIST changes: -SODIUM CHLORIDE 0.9% INJ 10 ML SYR IV PRN
== END ==
LOC: M INFU 07:25
PROVIDERS: ATTEND Internal Medicine
DX: F31.30 Bipolar disorder, current episode depressed, mild or moderate severity, unspecified (principal); Z88.0 Allergy status to penicillin; Z88.1 Allergy status to other antibiotic agents; Z88.8 Allergy status to other drugs, medicaments and biological substances
CPT/HCPCS: 96523; J1642

== ENCOUNTER 2021-11-23 07:25 | Outpatient (CLI) | payer MEDICARE ==
[~2021-11-23 07:25] MED LIST changes: -SODIUM CHLORIDE 0.9% INJ 10 ML SYR IV SCH
[2021-11-23] MEDS ORDERED: SODIUM CHLORIDE 0.9% INJ 10 ML SYR IV SCH (07:30)
[2021-11-23 07:41] VITALS: BP 122/92
== END 2021-11-23 07:40 | disposition home or self-care (01) ==
LOC: M INFU 07:25
PROVIDERS: ATTEND Internal Medicine
DX: F31.30 Bipolar disorder, current episode depressed, mild or moderate severity, unspecified (principal); Z88.0 Allergy status to penicillin; Z88.8 Allergy status to other drugs, medicaments and biological substances
CPT/HCPCS: 96523; J1642

== ENCOUNTER → 2022-12-27 | Outpatient (CLI) | payer MEDICAID, MEDICARE ==
[~2022-12-27] VITALS: Ht 160 cm; Wt 68.1 kg
[~2022-12-27] MED LIST changes: +DIAZ-654 PO; +LORA1TAB23 PO; -LORA1TAB4 PO; -MIRT-62 PO; +MIRT-88 PO; -OXYC-403 PO; +OXYC-673 PO; +SODIUM CHLORIDE 0.9% INJ 10 ML SYR IV SCH; -VALI10TA PO
[2022-12-27 10:15] VITALS: BP 119/71; O2SAT 99
== END ==
LOC: M INFU 09:54
PROVIDERS: ATTEND Internal Medicine
DX: F31.30 Bipolar disorder, current episode depressed, mild or moderate severity, unspecified (principal); Z88.0 Allergy status to penicillin; Z88.1 Allergy status to other antibiotic agents; Z88.8 Allergy status to other drugs, medicaments and biological substances

== ENCOUNTER 2023-01-24 11:05 | Outpatient (CLI) | payer MEDICAID, MEDICARE ==
[~2023-01-24] VITALS: Ht 160 cm; Wt 68.2 kg
[2023-01-24 11:15] VITALS: BP 136/83; O2SAT 98
== END 2023-01-24 11:15 ==
LOC: M INFU 11:05
PROVIDERS: ATTEND Internal Medicine
DX: F31.30 Bipolar disorder, current episode depressed, mild or moderate severity, unspecified (principal); Z88.0 Allergy status to penicillin; Z88.1 Allergy status to other antibiotic agents; Z88.8 Allergy status to other drugs, medicaments and biological substances

== ENCOUNTER 2023-02-23 15:20 | Outpatient (CLI) | payer MEDICARE ==
[~2023-02-23] VITALS: Ht 160 cm; Wt 68.2 kg
[2023-02-23 15:33] VITALS: BP 92/58; O2SAT 99
== END 2023-02-23 15:40 | disposition home or self-care (01) ==
LOC: M INFU 15:20
PROVIDERS: ATTEND Internal Medicine
DX: F31.30 Bipolar disorder, current episode depressed, mild or moderate severity, unspecified (principal); Z88.0 Allergy status to penicillin; Z88.1 Allergy status to other antibiotic agents; Z88.8 Allergy status to other drugs, medicaments and biological substances

== ENCOUNTER → 2023-02-24 | Outpatient (REF) | payer MEDICARE ==
[~2023-02-24] MED LIST changes: -SODIUM CHLORIDE 0.9% INJ 10 ML SYR IV SCH
== END ==
LOC: M SFHCWAGY 17:18
PROVIDERS: ATTEND Nurse Practitioner Family
DX: Z12.4 Encounter for screening for malignant neoplasm of cervix (principal); N95.2 Postmenopausal atrophic vaginitis

== ENCOUNTER → 2023-02-24 | Outpatient (CLI) | payer MEDICARE | LOC: M WHC 13:45 | PROVIDERS: ATTEND Nurse Practitioner Family | DX: Z12.31 Encounter for screening mammogram for malignant neoplasm of breast (principal); R92.323 Mammographic fibroglandular density, bilateral breasts; R92.1 Mammographic calcification found on diagnostic imaging of breast ==

== ENCOUNTER → 2023-03-22 | Outpatient (CLI) | payer MEDICARE ==
[~2023-03-22] VITALS: Ht 160 cm; Wt 69.1 kg
[~2023-03-22] MED LIST changes: +SODIUM CHLORIDE 0.9% INJ 10 ML SYR IV SCH
[2023-03-22 16:05] VITALS: BP 99/62; O2SAT 98
== END ==
LOC: M INFU 15:42
PROVIDERS: ATTEND Internal Medicine
DX: F31.30 Bipolar disorder, current episode depressed, mild or moderate severity, unspecified (principal); Z88.0 Allergy status to penicillin; Z88.1 Allergy status to other antibiotic agents; Z88.8 Allergy status to other drugs, medicaments and biological substances

== ENCOUNTER 2023-04-19 17:25 | Outpatient (CLI) | payer MEDICARE ==
[~2023-04-19] VITALS: Ht 160 cm; Wt 68.0 kg
[~2023-04-19 17:25] MED LIST changes: -SODIUM CHLORIDE 0.9% INJ 10 ML SYR IV SCH
[2023-04-19 17:31] VITALS: BP 119/70; O2SAT 99
[2023-04-19] MEDS: SODIUM CHLORIDE 0.9% INJ 10 ML SYR IV SCH (17:31)
== END 2023-04-19 17:35 | disposition home or self-care (01) ==
LOC: M INFU 17:25
PROVIDERS: ATTEND Internal Medicine
DX: F31.30 Bipolar disorder, current episode depressed, mild or moderate severity, unspecified (principal); Z88.0 Allergy status to penicillin; Z88.1 Allergy status to other antibiotic agents; Z88.8 Allergy status to other drugs, medicaments and biological substances

== ENCOUNTER 2023-05-16 10:55 | Outpatient (CLI) | payer MEDICARE ==
[~2023-05-16] VITALS: Ht 160 cm; Wt 68.5 kg
[2023-05-16 10:55] VITALS: BP 120/70; O2SAT 98
[2023-05-16] MEDS: SODIUM CHLORIDE 0.9% INJ 10 ML SYR IV SCH (10:58)
== END 2023-05-16 11:15 ==
LOC: M INFU 10:55
PROVIDERS: ATTEND Internal Medicine
DX: F31.30 Bipolar disorder, current episode depressed, mild or moderate severity, unspecified (principal); Z88.0 Allergy status to penicillin; Z88.1 Allergy status to other antibiotic agents; Z88.8 Allergy status to other drugs, medicaments and biological substances

== ENCOUNTER → 2023-06-15 | Outpatient (CLI) | payer MEDICARE, MEDICAID ==
[2023-06-15 10:30] VITALS: BP 112/88; O2SAT 99
[2023-06-15] MEDS: SODIUM CHLORIDE 0.9% INJ 10 ML SYR IV SCH (10:39)
== END ==
LOC: M INFU 10:25
PROVIDERS: ATTEND Internal Medicine
DX: Z45.2 Encounter for adjustment and management of vascular access device (principal)

== ENCOUNTER 2023-07-13 10:30 | Outpatient (CLI) | payer MEDICARE, MEDICAID ==
[~2023-07-13] VITALS: Ht 167.6 cm; Wt 71.4 kg
[2023-07-13] MEDS: SODIUM CHLORIDE 0.9% INJ 10 ML SYR IV SCH (10:30)
[2023-07-13 11:25] VITALS: BP 96/68; O2SAT 97
== END 2023-07-13 10:35 | disposition home or self-care (01) ==
LOC: M INFU 10:30
PROVIDERS: ATTEND Internal Medicine
DX: Z45.2 Encounter for adjustment and management of vascular access device (principal); Z88.0 Allergy status to penicillin; Z88.8 Allergy status to other drugs, medicaments and biological substances; Z91.018 Allergy to other foods

== ENCOUNTER 2023-08-10 11:30 | Outpatient (CLI) | payer MEDICARE, MEDICAID ==
[~2023-08-10] VITALS: Ht 167.6 cm; Wt 71.3 kg
[2023-08-10 10:35] VITALS: BP 113/68; O2SAT 99
[2023-08-10] MEDS: SODIUM CHLORIDE 0.9% INJ 10 ML SYR IV SCH (11:41)
== END 2023-08-10 11:45 ==
LOC: M INFU 11:30
PROVIDERS: ATTEND Internal Medicine
DX: Z45.2 Encounter for adjustment and management of vascular access device (principal); Z88.0 Allergy status to penicillin; Z88.1 Allergy status to other antibiotic agents; Z88.6 Allergy status to analgesic agent

== ENCOUNTER 2023-09-13 14:59 | Outpatient (CLI) | payer MEDICARE, MEDICAID ==
[~2023-09-13] VITALS: Ht 162.6 cm; Wt 70.5 kg
[2023-09-13] MEDS: SODIUM CHLORIDE 0.9% INJ 10 ML SYR IV SCH (09:00)
[2023-09-13 15:40] VITALS: BP 104/68; O2SAT 100
== END 2023-09-13 15:50 ==
LOC: M INFU 14:59
PROVIDERS: ATTEND Internal Medicine
DX: Z45.2 Encounter for adjustment and management of vascular access device (principal); Z88.0 Allergy status to penicillin; Z88.8 Allergy status to other drugs, medicaments and biological substances; Z91.018 Allergy to other foods

== ENCOUNTER 2023-10-11 17:38 | Outpatient (CLI) | payer MEDICARE, MEDICAID ==
[2023-10-11 17:38] VITALS: BP 144/68; O2SAT 96
[2023-10-11] MEDS: SODIUM CHLORIDE 0.9% INJ 10 ML SYR IV SCH (17:44)
== END 2023-10-11 17:50 ==
LOC: M INFU 17:38
PROVIDERS: ATTEND Internal Medicine
DX: Z45.2 Encounter for adjustment and management of vascular access device (principal)

== ENCOUNTER 2023-11-08 16:00 | Outpatient (CLI) | payer MEDICARE, MEDICAID ==
[~2023-11-08] VITALS: Ht 162.6 cm; Wt 72.7 kg
[2023-11-08 16:05] VITALS: BP 115/69; O2SAT 97
[2023-11-08] MEDS: SODIUM CHLORIDE 0.9% INJ 10 ML SYR IV SCH (16:08)
== END 2023-11-08 16:25 ==
LOC: M INFU 16:00
PROVIDERS: ATTEND Internal Medicine
DX: Z45.2 Encounter for adjustment and management of vascular access device (principal); Z88.0 Allergy status to penicillin; Z88.1 Allergy status to other antibiotic agents; Z88.8 Allergy status to other drugs, medicaments and biological substances
CPT/HCPCS: 96523; J1642

== ENCOUNTER 2023-12-06 10:40 | Outpatient (CLI) | payer MEDICARE, MEDICAID ==
[2023-12-06 10:50] VITALS: BP 101/57; O2SAT 100
[2023-12-06] MEDS: SODIUM CHLORIDE 0.9% INJ 10 ML SYR IV SCH (10:56)
== END 2023-12-06 10:56 ==
LOC: M INFU 10:40
PROVIDERS: ATTEND Internal Medicine
DX: Z45.2 Encounter for adjustment and management of vascular access device (principal); Z88.0 Allergy status to penicillin; Z88.1 Allergy status to other antibiotic agents; Z88.8 Allergy status to other drugs, medicaments and biological substances
CPT/HCPCS: 96523; J1642

== ENCOUNTER 2024-01-02 09:55 | Outpatient (CLI) | payer MEDICARE, MEDICAID ==
[2024-01-02 09:55] VITALS: BP 122/73; O2SAT 100
[2024-01-02] MEDS: SODIUM CHLORIDE 0.9% INJ 10 ML SYR IV SCH (10:06)
== END 2024-01-02 10:09 ==
LOC: M INFU 09:55
PROVIDERS: ATTEND Internal Medicine
DX: F31.30 Bipolar disorder, current episode depressed, mild or moderate severity, unspecified (principal)
CPT/HCPCS: 96523; J1642

== ENCOUNTER 2024-01-30 09:50 | Outpatient (CLI) | payer MEDICARE, MEDICAID ==
[~2024-01-30] VITALS: Ht 162.6 cm; Wt 77.2 kg
[~2024-01-30 09:50] MED LIST changes: +SODIUM CHLORIDE 0.9% INJ 10 ML SYR IV PRN
[2024-01-30] MEDS: SODIUM CHLORIDE 0.9% INJ 10 ML SYR IV SCH (09:54)
[2024-01-30 10:05] VITALS: BP 126/73; O2SAT 98
== END 2024-01-30 10:05 ==
LOC: M INFU 09:50
PROVIDERS: ATTEND Internal Medicine
DX: Z45.2 Encounter for adjustment and management of vascular access device (principal); F31.30 Bipolar disorder, current episode depressed, mild or moderate severity, unspecified
CPT/HCPCS: 96523; J1642

== ENCOUNTER 2024-02-27 16:56 | Outpatient (CLI) | payer MEDICARE, MEDICAID ==
[~2024-02-27 16:56] MED LIST changes: -ADV100INH INH; +ADVA1AER8 INH; -SODIUM CHLORIDE 0.9% INJ 10 ML SYR IV PRN
[2024-02-27] MEDS: SODIUM CHLORIDE 0.9% INJ 10 ML SYR IV SCH (17:26)
[2024-02-27 17:29] VITALS: BP 121/65; O2SAT 96
== END 2024-02-27 17:30 | disposition home or self-care (01) ==
LOC: M INFU 16:56
PROVIDERS: ATTEND Internal Medicine
DX: Z45.2 Encounter for adjustment and management of vascular access device (principal); F31.30 Bipolar disorder, current episode depressed, mild or moderate severity, unspecified; Z88.0 Allergy status to penicillin; Z88.1 Allergy status to other antibiotic agents; Z88.6 Allergy status to analgesic agent
CPT/HCPCS: 96523; J1642

== ENCOUNTER 2024-03-26 08:21 | Outpatient (CLI) | payer MEDICARE, MEDICAID ==
[2024-03-26 08:40] VITALS: BP 96/58; O2SAT 96
[2024-03-26] MEDS ORDERED: SODIUM CHLORIDE 0.9% INJ 10 ML SYR IV PRN (08:50)
[2024-03-26] MEDS: SODIUM CHLORIDE 0.9% INJ 10 ML SYR IV SCH (08:51)
== END 2024-03-26 08:55 ==
LOC: M INFU 08:21
PROVIDERS: ATTEND Internal Medicine
DX: Z45.2 Encounter for adjustment and management of vascular access device (principal); F31.30 Bipolar disorder, current episode depressed, mild or moderate severity, unspecified
CPT/HCPCS: 96523; J1642

== ENCOUNTER → 2024-05-18 | Outpatient (CLI) | payer MEDICARE, MEDICAID ==
[2024-05-18 08:20] VITALS: BP 119/65; O2SAT 97
[2024-05-18] MEDS: SODIUM CHLORIDE 0.9% INJ 10 ML SYR IV SCH (08:27)
== END ==
LOC: M INFU 08:09
PROVIDERS: ATTEND Internal Medicine
DX: Z45.2 Encounter for adjustment and management of vascular access device (principal); F31.30 Bipolar disorder, current episode depressed, mild or moderate severity, unspecified
CPT/HCPCS: 96523; J1642

== ENCOUNTER 2024-06-25 09:10 | Outpatient (CLI) | payer MEDICARE, MEDICAID ==
[~2024-06-25] VITALS: Ht 162.6 cm; Wt 86.4 kg
[~2024-06-25 09:10] MED LIST changes: +TOPI-14 PO; -TOPI200T7 PO
[2024-06-25] MEDS ORDERED: SODIUM CHLORIDE 0.9% INJ 10 ML SYR IV PRN (09:30)
[2024-06-25] MEDS: SODIUM CHLORIDE 0.9% INJ 10 ML SYR IV SCH (09:31)
[2024-06-25 09:39] VITALS: BP 130/88; O2SAT 100
== END 2024-06-25 09:40 | disposition home or self-care (01) ==
LOC: M INFU 09:10
PROVIDERS: ATTEND Internal Medicine
DX: Z45.2 Encounter for adjustment and management of vascular access device (principal); F31.30 Bipolar disorder, current episode depressed, mild or moderate severity, unspecified; Z88.0 Allergy status to penicillin; Z88.1 Allergy status to other antibiotic agents; Z88.8 Allergy status to other drugs, medicaments and biological substances
CPT/HCPCS: 96523; J1642

== ENCOUNTER → 2024-07-14 | Outpatient (CLI) | payer MEDICARE, MEDICAID ==
[~2024-07-14] MED LIST changes: +LIDO1ADH93 TD; -LIDO5DIS41 TD
== END ==
LOC: M LAB 15:08
PROVIDERS: ATTEND Nurse Practitioner Family
DX: M54.16 Radiculopathy, lumbar region (principal)